=== PATIENT | female | born 1940 | race Caucasian/White ===

== ENCOUNTER → 2016-10-17 | Outpatient (CLI) | payer MEDICARE, BC | END | disposition home or self-care (01) | LOC: LABWHC1 09:30 | PROVIDERS: ATTEND Internal Medicine Endocrinology, Diabetes & Metabolism | DX: E03.8 Other specified hypothyroidism (principal) | CPT/HCPCS: 36415; 84439; 84443; 84480; 86376 ==

== ENCOUNTER 2019-02-02 05:53 | Inpatient (IN) | payer MEDICARE, BC ==
--- NOTE | 2019-02-02 06:35 | ED ---
Lower Extremity Injury HPI - General Chief Complaint: Extremity Injury, Lower Stated Complaint: Fall Time Seen by Provider: 02/02/19 06:06 Source: patient, EMS, RN notes reviewed, old records reviewed Mode of arrival: EMS Limitations: no limitations - History of Present Illness Initial Comments: Patient is a 78-year-old female, she presents emergency department today after she tripped and fell over family dog. Patient reports that she landed onto her left side. Complaining of left hip and lower leg pain. Patient reports that when she fell last night she is not able to bear weight or get up. She reports that she laid on the floor for the evening. She then called EMS this morning. Patient was on the ground for 14 hours. Patient is not on blood thinners. 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 Patient denies any recent fever, chills, shortness of breath, chest pain, back pain, abdominal pain, nausea vomiting, numbness or tingling, dysuria or hematuria, constipation or diarrhea, headaches or visual changes, or any other current symptoms. - Related Data Home Medications Medication Instructions Recorded Confirmed Betamethasone Dipropionate 1 applic TOPICAL BID 02/02/19 02/02/19 [Diprolene AF 0.05% Cream] Levothyroxine Sodium [Synthroid] 75 mcg PO DAILY 02/02/19 02/02/19 Lisinopril [Zestril] 10 mg PO DAILY 02/02/19 02/02/19 Lovastatin [Mevacor] 20 mg PO HS 02/02/19 02/02/19 traMADol HCL 50 - 100 mg PO TID PRN 02/02/19 02/02/19 Allergies Allergy/AdvReac Type Severity Reaction Status Date / Time Sulfa (Sulfonamide AdvReac Nausea & Verified 02/02/19 08:26 Antibiotics) Vomiting Review of Systems ROS Statement: Those systems with pertinent positive or pertinent negative responses have been documented in the HPI. ROS Other: All systems not noted in ROS Statement are negative. Past Medical History History of Any Multi-Drug Resistant Organisms: None Reported Past Psychological History: Anxiety, Depression Smoking Status: Former smoker Past Alcohol Use History: Daily Past Drug Use History: None Reported General Exam - General Exam Comments Initial Comments: Pleasant 78-year-old female. Limitations: no limitations General appearance: alert, in no apparent distress Head exam: Present: atraumatic, normocephalic, normal inspection Eye exam: Present: normal appearance, PERRL, EOMI. Absent: scleral icterus, conjunctival injection, periorbital swelling ENT exam: Present: normal exam, mucous membranes moist Neck exam: Present: normal inspection. Absent: tenderness, meningismus, lymphadenopathy Respiratory exam: Present: normal lung sounds bilaterally. Absent: respiratory distress, wheezes, rales, rhonchi, stridor Cardiovascular Exam: Present: regular rate, normal rhythm, normal heart sounds. Absent: systolic murmur, diastolic murmur, rubs, gallop, clicks GI/Abdominal exam: Present: soft, normal bowel sounds. Absent: distended, tenderness, guarding, rebound, rigid Extremities exam: Present: normal inspection, full ROM, normal capillary refill, other (Isn't is a length in the left lower leg. Unable to dorsiflex or plantarflex. She reports pain within the hip thigh and knee.). Absent: tenderness, pedal edema, joint swelling, calf tenderness Left Hip exam: Present: normal inspection, tenderness Upper Leg exam: Present: normal inspection, full ROM Knee exam: Present: normal inspection Lower Leg exam: Present: normal inspection, full ROM Neurovascular tendon exam: Present: no vascular compromise Gait: unable to bear weight Neurological exam: Present: alert, oriented X3, CN II-XII intact Psychiatric exam: Present: normal affect, normal mood Skin exam: Present: warm, dry, intact, normal color. Absent: rash Course Vital Signs 02/02/19 02/02/19 05:58 09:11 Temperature 98.5 F 99.3 F Pulse Rate 77 73 Respiratory 16 18 Rate Blood Pressure 154/81 140/72 O2 Sat by Pulse 95 94 L Oximetry Medical Decision Making - Medical Decision Making 78 rolled female history of hypertension, thyroid disorder. She presents after tripping falling over her family dog yesterday evening. Patient reports that she fell onto her left side and hip. Denies any head injury. She is not on blood thinners. At this time patient's has tenderness over the left femur. X- rays were completed and showed no significant fracture. Due to the persistent pain and unable to ambulate Patient had a CT of her hip. There is evidence of subcapital fracture with nondisplacement. Patient's case was discussed with Dr. Estrada who accepts the admission. Requires a stat consult to medicine to have Patient cleared for surgery as he can likely put a placement of the pain before the fracture becomes displaced. - Lab Data Result diagrams: 02/02/19 07:07 02/02/19 07:07 Lab Results 02/02/19 02/02/19 02/02/19 Range/Units 07:07 07:07 07:07 WBC 12.5 H (3.8-10.6) k/uL RBC 3.95 (3.80-5.40) m/uL Hgb 13.0 (11.4-16.0) gm/dL Hct 38.3 (34.0-46.0) % MCV 97.0 (80.0-100.0) fL MCH 33.0 (25.0-35.0) pg MCHC 34.0 (31.0-37.0) g/dL RDW 13.4 (11.5-15.5) % Plt Count 234 (150-450) k/uL Neutrophils % 77 % Lymphocytes % 14 % Monocytes % 6 % Eosinophils % 1 % Basophils % 0 % Neutrophils # 9.6 H (1.3-7.7) k/uL Lymphocytes # 1.7 (1.0-4.8) k/uL Monocytes # 0.7 (0-1.0) k/uL Eosinophils # 0.1 (0-0.7) k/uL Basophils # 0.0 (0-0.2) k/uL PT 9.5 (9.0-12.0) sec INR 0.9 (<1.2) APTT 23.2 (22.0-30.0) sec Sodium 133 L (137-145) mmol/L Potassium 4.3 (3.5-5.1) mmol/L Chloride 100 (98-107) mmol/L Carbon Dioxide 24 (22-30) mmol/L Anion Gap 9 mmol/L BUN 14 (7-17) mg/dL Creatinine 0.70 (0.52-1.04) mg/dL Est GFR (CKD-EPI)AfAm >90 (>60 ml/min/1.73 sqM) Est GFR (CKD-EPI)NonAf 84 (>60 ml/min/1.73 sqM) Glucose 93 (74-99) mg/dL Calcium 8.7 (8.4-10.2) mg/dL Total Bilirubin 0.5 (0.2-1.3) mg/dL AST 64 H (14-36) U/L ALT 46 (9-52) U/L Alkaline Phosphatase 80 (38-126) U/L Creatine Kinase 267 H (30-135) U/L Total Protein 6.9 (6.3-8.2) g/dL Albumin 4.0 (3.5-5.0) g/dL Urine Color Urine Appearance (Clear) Urine pH (5.0-8.0) Ur Specific [place] (1.001-1.035) Urine Protein (Negative) Urine Glucose (UA) (Negative) Urine Ketones (Negative) Urine Blood (Negative) Urine Nitrite (Negative) Urine Bilirubin (Negative) Urine Urobilinogen (<2.0) mg/dL Ur Leukocyte Esterase (Negative) Urine RBC (0-5) /hpf Urine WBC (0-5) /hpf Ur Squamous Epith Cells (0-4) /hpf Urine Mucus (None) /hpf 02/02/19 Range/Units 07:07 WBC (3.8-10.6) k/uL RBC (3.80-5.40) m/uL Hgb (11.4-16.0) gm/dL Hct (34.0-46.0) % MCV (80.0-100.0) fL MCH (25.0-35.0) pg MCHC (31.0-37.0) g/dL RDW (11.5-15.5) % Plt Count (150-450) k/uL Neutrophils % % Lymphocytes % % Monocytes % % Eosinophils % % Basophils % % Neutrophils # (1.3-7.7) k/uL Lymphocytes # (1.0-4.8) k/uL Monocytes # (0-1.0) k/uL Eosinophils # (0-0.7) k/uL Basophils # (0-0.2) k/uL PT (9.0-12.0) sec INR (<1.2) APTT (22.0-30.0) sec Sodium (137-145) mmol/L Potassium (3.5-5.1) mmol/L Chloride (98-107) mmol/L Carbon Dioxide (22-30) mmol/L Anion Gap mmol/L BUN (7-17) mg/dL Creatinine (0.52-1.04) mg/dL Est GFR (CKD-EPI)AfAm (>60 ml/min/1.73 sqM) Est GFR (CKD-EPI)NonAf (>60 ml/min/1.73 sqM) Glucose (74-99) mg/dL Calcium (8.4-10.2) mg/dL Total Bilirubin (0.2-1.3) mg/dL AST (14-36) U/L ALT (9-52) U/L Alkaline Phosphatase (38-126) U/L Creatine Kinase (30-135) U/L Total Protein (6.3-8.2) g/dL Albumin (3.5-5.0) g/dL Urine Color Light Yellow Urine Appearance Clear (Clear) Urine pH 5.5 (5.0-8.0) Ur Specific [place] 1.009 (1.001-1.035) Urine Protein Negative (Negative) Urine Glucose (UA) Negative (Negative) Urine Ketones Negative (Negative) Urine Blood Negative (Negative) Urine Nitrite Negative (Negative) Urine Bilirubin Negative (Negative) Urine Urobilinogen <2.0 (<2.0) mg/dL Ur Leukocyte Esterase Moderate H (Negative) Urine RBC 2 (0-5) /hpf Urine WBC 10 H (0-5) /hpf Ur Squamous Epith Cells 2 (0-4) /hpf Urine Mucus Rare H (None) /hpf 02/02/19 07:28 EKG shows normal sinus rhythm, normally EKG. Ventricular rate 77 bpm. Was 132 ms. QS duration 70 ms. QT is 414/468 milliseconds. - Radiology Data Radiology results: report reviewed Chest x-ray cannot exclude a small left-sided effusion. Pelvis x-ray shows no acute osseous lesion. Femur x-rays negative for any acute osseous lesion. Left tib-fib x-ray shows no acute osseous lesion. CT of the hip shows subcapital fracture of the left hip with minimal foreshortening and mild angulation. Degenerative changes within the spine. Diverticulosis of the sigmoid colon. Disposition Clinical Impression: Closed left hip fracture Disposition: HOME SELF-CARE Condition: Stable Is patient prescribed a controlled substance at d/c from ED?: No Referrals: Nonstaff,Physician [Primary Care Provider] - 1-2 days Time of Disposition: 09:29
[2019-02-02] MEDS ORDERED: MORPHINE SULFATE 4 MG/ML SYRINGE IVP STA (06:37)
[2019-02-02 07:22] LABS: Basophils % (A) 0 %; Eosinophils # (A) 0.1 k/uL (0-0.7); Eosinophils % (A) 1 %; HCT 38.3 % (34.0-46.0); Lymphocytes # (A) 1.7 k/uL (1.0-4.8); Lymphocytes % (A) 14 %; Mean Platelet Volume 6.1; Monocytes # (A) 0.7 k/uL (0-1.0); Monocytes % (A) 6 %; Neutrophils # (A) 9.6 k/uL (1.3-7.7); Neutrophils % (A) 77 %; Platelet Count 234 k/uL (150-450); RBC 3.95 m/uL (3.80-5.40); RDW 13.4 % (11.5-15.5); WBC 12.5 k/uL (3.8-10.6)
[2019-02-02 07:32] LABS: INR 0.9 (<1.2); Partial Thromboplastin Time 23.2 sec (22.0-30.0); Prothrombin Time 9.5 sec (9.0-12.0)
[2019-02-02 07:36] LABS: ALT 46 U/L (9-52); AST 64 U/L (14-36); African American GFR (CKD) >90 (>60 ml/min/1.73 sqM); Alkaline Phosphatase 80 U/L (38-126); Anion Gap 9 mmol/L; Blood Urea Nitrogen 14 mg/dL (7-17); Calcium 8.7 mg/dL (8.4-10.2); Carbon Dioxide 24 mmol/L (22-30); Chloride 100 mmol/L (98-107); Creatine Kinase 267 U/L (30-135); Glucose 93 mg/dL (74-99); Non-African American GFR(CKD) 84 (>60 ml/min/1.73 sqM); Potassium 4.3 mmol/L (3.5-5.1); Sodium 133 mmol/L (137-145); Total Bilirubin 0.5 mg/dL (0.2-1.3); Total Protein 6.9 g/dL (6.3-8.2)
--- NOTE | 2019-02-02 07:42 | XR ---
EXAMINATION TYPE: XR chest 1V DATE OF EXAM: 02/02/2019 HISTORY: fall. REFERENCE: NONE. FINDINGS: Heart size upper limits of normal. The lungs are clear. There is blunting of the left CP an gle and I could not exclude a small left effusion. IMPRESSION: I CANNOT EXCLUDE A SMALL LEFT-SIDED EFFUSION.
--- NOTE | 2019-02-02 07:43 | XR ---
EXAMINATION TYPE: XR pelvis AP view , ONE VIEW DATE OF EXAM ORDERED: 02/02/2019 HISTORY: fall. COMPARISON: None. FINDINGS: Osseous structures about the pelvis are normal. No fracture or dislocation is seen. Hip kathe ints are maintained. IMPRESSION: NO ACUTE OSSEOUS LESION.
--- NOTE | 2019-02-02 07:45 | XR ---
EXAMINATION TYPE: XR femur LT , 4 VIEWS DATE OF EXAM ORDERED: 02/02/2019 HISTORY: fall. COMPARISON: None. FINDINGS: There is minimal degenerative change present within the left hip. There is a left knee barak nt arthroplasty in place. No fracture or dislocation is seen. IMPRESSION: NO ACUTE OSSEOUS LESION.
--- NOTE | 2019-02-02 07:46 | XR ---
EXAMINATION TYPE: XR tibia fibula LT , 5 VIEWS DATE OF EXAM ORDERED: 02/02/2019 HISTORY: fall. COMPARISON: None. FINDINGS: There is a left knee arthroplasty in place. Prosthetic elements appear in good position. N o fracture or dislocation is seen. Note is made of a plantar calcaneal spur. IMPRESSION: NO ACUTE OSSEOUS LESION.
[2019-02-02 08:00] LABS: Appearance,Urine Clear (Clear); Bilirubin,Urine Negative (Negative); Blood,Urine Negative (Negative); Color,Urine Light Yellow; Glucose,Urine (UA) Negative (Negative); Ketones,Urine Negative (Negative); Leukocyte Esterase,Urine Moderate (Negative); Mucus,Urine Rare /hpf; Nitrite,Urine Negative (Negative); PH, Urine 5.5 (5.0-8.0); Protein,Urine Negative (Negative); RBC,Urine 2 /hpf (0-5); Specific Gravity,Urine 1.009 (1.001-1.035); Squamous Epithelial Cell,Urine 2 /hpf (0-4); Urobilinogen,Urine <2.0 mg/dL (<2.0); WBC,Urine 10 /hpf (0-5)
--- NOTE | 2019-02-02 08:46 | CT ---
EXAMINATION TYPE: CT hip LT wo con DATE OF EXAM: 02/02/2019 COMPARISON: None. HISTORY: Left hip pain post fall. CT DLP: 715 mGycm Automated exposure control for dose reduction was used. FINDINGS: There is moderate calcification of the distal abdominal aorta. There is distention of the bladder. There is significant diverticular change involving the sigmoid colon. I do not see radiographic evide nce of diverticulitis. There is facet arthropathy in the lower lumbar spine. There is degenerative disc disease at L5-S1. There is an undisplaced subcapital fracture of the left hip with minimal angulation and mild foreshor tening. IMPRESSION: 1. SUBCAPITAL FRACTURE OF THE LEFT HIP WITH MINIMAL FORESHORTENING AND MILD ANGULATION. 2. DEGENERATIVE CHANGE WITHIN THE SPINE. 3. DIVERTICULOSIS OF THE SIGMOID COLON. CODE A: INITIAL ENCOUNTER FOR CLOSED FRACTURE.
[2019-02-02] MEDS ORDERED: IBUPROFEN 400 MG TAB PO PRN (09:29)
[2019-02-02] MEDS ORDERED: MORPHINE SULFATE 4 MG/ML SYRINGE IV PRN (09:29)
[2019-02-02] MEDS ORDERED: HYDROmorphone 0.5 MG/0.5 ML SYRINGE IVP PRN (09:29)
[2019-02-02] MEDS ORDERED: ACETAMINOPHEN TAB 325 MG TAB PO PRN (09:29)
[2019-02-02] MEDS ORDERED: NALOXONE 0.4 MG/ML 1 ML VIAL IV PRN ×2 (09:29→12:34)
--- NOTE | 2019-02-02 09:43 | ED ---
Medical Decision Making - Lab Data Result diagrams: 02/02/19 07:07 02/02/19 07:07 Lab Results 02/02/19 02/02/19 02/02/19 Range/Units 07:07 07:07 07:07 WBC 12.5 H (3.8-10.6) k/uL RBC 3.95 (3.80-5.40) m/uL Hgb 13.0 (11.4-16.0) gm/dL Hct 38.3 (34.0-46.0) % MCV 97.0 (80.0-100.0) fL MCH 33.0 (25.0-35.0) pg MCHC 34.0 (31.0-37.0) g/dL RDW 13.4 (11.5-15.5) % Plt Count 234 (150-450) k/uL Neutrophils % 77 % Lymphocytes % 14 % Monocytes % 6 % Eosinophils % 1 % Basophils % 0 % Neutrophils # 9.6 H (1.3-7.7) k/uL Lymphocytes # 1.7 (1.0-4.8) k/uL Monocytes # 0.7 (0-1.0) k/uL Eosinophils # 0.1 (0-0.7) k/uL Basophils # 0.0 (0-0.2) k/uL PT 9.5 (9.0-12.0) sec INR 0.9 (<1.2) APTT 23.2 (22.0-30.0) sec Sodium 133 L (137-145) mmol/L Potassium 4.3 (3.5-5.1) mmol/L Chloride 100 (98-107) mmol/L Carbon Dioxide 24 (22-30) mmol/L Anion Gap 9 mmol/L BUN 14 (7-17) mg/dL Creatinine 0.70 (0.52-1.04) mg/dL Est GFR (CKD-EPI)AfAm >90 (>60 ml/min/1.73 sqM) Est GFR (CKD-EPI)NonAf 84 (>60 ml/min/1.73 sqM) Glucose 93 (74-99) mg/dL Calcium 8.7 (8.4-10.2) mg/dL Total Bilirubin 0.5 (0.2-1.3) mg/dL AST 64 H (14-36) U/L ALT 46 (9-52) U/L Alkaline Phosphatase 80 (38-126) U/L Creatine Kinase 267 H (30-135) U/L Total Protein 6.9 (6.3-8.2) g/dL Albumin 4.0 (3.5-5.0) g/dL Urine Color Urine Appearance (Clear) Urine pH (5.0-8.0) Ur Specific [place] (1.001-1.035) Urine Protein (Negative) Urine Glucose (UA) (Negative) Urine Ketones (Negative) Urine Blood (Negative) Urine Nitrite (Negative) Urine Bilirubin (Negative) Urine Urobilinogen (<2.0) mg/dL Ur Leukocyte Esterase (Negative) Urine RBC (0-5) /hpf Urine WBC (0-5) /hpf Ur Squamous Epith Cells (0-4) /hpf Urine Mucus (None) /hpf 02/02/19 Range/Units 07:07 WBC (3.8-10.6) k/uL RBC (3.80-5.40) m/uL Hgb (11.4-16.0) gm/dL Hct (34.0-46.0) % MCV (80.0-100.0) fL MCH (25.0-35.0) pg MCHC (31.0-37.0) g/dL RDW (11.5-15.5) % Plt Count (150-450) k/uL Neutrophils % % Lymphocytes % % Monocytes % % Eosinophils % % Basophils % % Neutrophils # (1.3-7.7) k/uL Lymphocytes # (1.0-4.8) k/uL Monocytes # (0-1.0) k/uL Eosinophils # (0-0.7) k/uL Basophils # (0-0.2) k/uL PT (9.0-12.0) sec INR (<1.2) APTT (22.0-30.0) sec Sodium (137-145) mmol/L Potassium (3.5-5.1) mmol/L Chloride (98-107) mmol/L Carbon Dioxide (22-30) mmol/L Anion Gap mmol/L BUN (7-17) mg/dL Creatinine (0.52-1.04) mg/dL Est GFR (CKD-EPI)AfAm (>60 ml/min/1.73 sqM) Est GFR (CKD-EPI)NonAf (>60 ml/min/1.73 sqM) Glucose (74-99) mg/dL Calcium (8.4-10.2) mg/dL Total Bilirubin (0.2-1.3) mg/dL AST (14-36) U/L ALT (9-52) U/L Alkaline Phosphatase (38-126) U/L Creatine Kinase (30-135) U/L Total Protein (6.3-8.2) g/dL Albumin (3.5-5.0) g/dL Urine Color Light Yellow Urine Appearance Clear (Clear) Urine pH 5.5 (5.0-8.0) Ur Specific [place] 1.009 (1.001-1.035) Urine Protein Negative (Negative) Urine Glucose (UA) Negative (Negative) Urine Ketones Negative (Negative) Urine Blood Negative (Negative) Urine Nitrite Negative (Negative) Urine Bilirubin Negative (Negative) Urine Urobilinogen <2.0 (<2.0) mg/dL Ur Leukocyte Esterase Moderate H (Negative) Urine RBC 2 (0-5) /hpf Urine WBC 10 H (0-5) /hpf Ur Squamous Epith Cells 2 (0-4) /hpf Urine Mucus Rare H (None) /hpf Disposition Clinical Impression: Closed left hip fracture Disposition: ADMITTED IP TO THIS [facility] Condition: Stable Referrals: Nonstaff,Physician [Primary Care Provider] - 1-2 days
[2019-02-02] MEDS ORDERED: PROPOFOL 10 MG/ML 20 ML VIAL IV ONE (10:57)
[2019-02-02] MEDS ORDERED: KETAMINE 10 MG/ML 20 ML VIAL ONE (10:57)
[2019-02-02] MEDS ORDERED: MIDAZOLAM 2 MG/2 ML VIAL ONE (10:57)
--- NOTE | 2019-02-02 11:00 | P.HPOR ---
History of Present Illness H&P Date: 02/02/19 The patient is a very pleasant previously healthy 78-year-old that presented to the emergency department this morning with a left hip fracture. According to the patient she tripped and fell over her dog last night. She laid on the floor and was then found by her . She was brought to the emergency department where x-rays and CT scans showed a minimally displaced an impacted femoral neck fracture. I met with the patient preoperatively and she was complaining of isolated pain in her left hip. At baseline she is a community ambulator without assisted device. She is otherwise healthy and is relatively active for her age. Past Medical History History of Any Multi-Drug Resistant Organisms: None Reported Past Psychological History: Anxiety, Depression Smoking Status: Former smoker Past Alcohol Use History: Daily Past Drug Use History: None Reported Medications and Allergies Home Medications Medication Instructions Recorded Confirmed Type Betamethasone Dipropionate 1 applic TOPICAL BID 02/02/19 02/02/19 History [Diprolene AF 0.05% Cream] Escitalopram [Lexapro] 20 mg PO DAILY 02/02/19 02/02/19 History Gabapentin [Neurontin] 300 mg PO TID@0800,1700,2100 02/02/19 02/02/19 History LORazepam [Ativan] 0.5 mg PO DAILY PRN 02/02/19 02/02/19 History Levothyroxine Sodium [Synthroid] 75 mcg PO DAILY 02/02/19 02/02/19 History Lisinopril [Zestril] 10 mg PO DAILY 02/02/19 02/02/19 History Lovastatin [Mevacor] 20 mg PO HS 02/02/19 02/02/19 History traMADol HCL 50 - 100 mg PO TID PRN 02/02/19 02/02/19 History traZODone HCL [Desyrel] 100 mg PO HS 02/02/19 02/02/19 History Allergies Allergy/AdvReac Type Severity Reaction Status Date / Time Sulfa (Sulfonamide AdvReac Nausea & Verified 02/02/19 08:26 Antibiotics) Vomiting Physical Examination On exam the patient is resting comfortably on her ER gurney. She is in mild distress secondary to hip pain but is otherwise alert and easily able to answer questions. Her head is normocephalic and atraumatic. She demonstrates nonlabored breathing with symmetric chest expansion. Her abdomen is soft and nontender. Her bilateral upper extremities and right lower extremities are nontender and without deformity. A focused examination of the left leg was co nducted. On visual inspection of the left leg there was no significant deformity when compared to the right leg. Her thigh was soft and there were no overlying skin lesions, scars, erythema, or areas of skin breakdown. The knee and foot were nontender. Motor and sensory function were intact in the left foot. Results X-rays of the pelvis and femur as well as the computed tomography scan were reviewed. They show a minimally displaced and impacted subcapital femoral neck fracture. - Labs Labs: Abnormal Lab Results - Last 24 Hours (Table) 02/02/19 02/02/19 02/02/19 Range/Units 07:07 07:07 07:07 WBC 12.5 H (3.8-10.6) k/uL Neutrophils # 9.6 H (1.3-7.7) k/uL Sodium 133 L (137-145) mmol/L AST 64 H (14-36) U/L Creatine Kinase 267 H (30-135) U/L Ur Leukocyte Esterase Moderate H (Negative) Urine WBC 10 H (0-5) /hpf Urine Mucus Rare H (None) /hpf H & H 02/02/19 Range/Units 07:07 Hgb 13.0 (11.4-16.0) gm/dL Hct 38.3 (34.0-46.0) % Coagulation 02/02/19 Range/Units 07:07 INR 0.9 (<1.2) Result Diagrams: 02/02/19 07:07 02/02/19 07:07 Assessment and Plan Plan: The patient is presenting with an acute, minimally displaced, and impacted femoral neck fracture. She has been admitted under my care. I met with the patient to discuss her injury and treatment options. We discussed that it will require surgery. We discussed the 2 different treatment options for nondisplaced and impacted femoral neck fractures in people her age. We discussed in situ screw fixation to stabilize the fracture versus arthroplasty. We discussed the pros and cons of both. Due to the x-rays showing impaction and the computed tomography scan showing minimal displacement my recommendation was to stabilize the fracture with in situ screws, acknowledging the risk for displacement and failure ultimately requiring arthroplasty. The patient understands the risks of both treatments and agrees that she would like an at tempt to save her hip with in situ screw fixation. She understands the potential for displacement, nonunion, and the possibility of requiring an arthroplasty. We will plan on surgical stabilization this morning to prevent risk of displacement on the floor. She is relatively healthy and has been n othing by mouth since midnight. Time with Patient: Greater than 30
[2019-02-02] MEDS ORDERED: LACTATED RINGERS 1,000 ML IV ONE ×2 (11:01→12:10)
--- NOTE | 2019-02-02 12:01 | P.EN ---
Attempts to the patient in the emergency room and then in 4 N. however patient was taken to the operation room by surgery team
--- NOTE | 2019-02-02 12:23 | FL ---
FLUOROSCOPY 61 seconds of fluoroscopy time were utilized during left hip pinning. 1 images document the procedure .
[2019-02-02] MEDS ORDERED: HYDROcodone/APAP 5-325MG 1 EACH TAB PO PRN (12:34)
[2019-02-02] MEDS ORDERED: MAGNESIUM HYDROXIDE 2,400 MG/10 ML CUP PO PRN (12:34)
[2019-02-02] MEDS ORDERED: HYDROmorphone 1 MG/ML 1 ML SYRINGE IVP PRN (12:34)
--- NOTE | 2019-02-02 12:34 | P.OP ---
Date of Procedure: 02/02/19 Preoperative Diagnosis: Left nondisplaced subcapital femoral neck fracture Postoperative Diagnosis: Same Procedure(s) Performed: In situ screw fixation of nondisplaced left femoral neck fracture Anesthesia: spinal Surgeon: Ki Estrada Estimated Blood Loss (ml): 50 IV fluids (ml): 800 Pathology: none sent Condition: stable Disposition: PACU Indications for Procedure: The patient is very pleasant previously healthy and relatively active 78 year o ld female who sustained a fall last evening resulting in a nondisplaced femoral neck fracture. She was brought to the emergency department this morning where x-rays and CT scans showed a nondisplaced subcapital femoral neck fracture. The patient was admitted under my care. I met with Gisselle prior to surgery discussed treatment options including in situ screw fixation and arthroplasty. We discussed the pros and cons of both. Since the fracture is nondisplaced on her computed tomography scan my recommendation was to attempt in situ screw fixation, acknowledging the risk for displacement ultimately requiring arthroplasty. The patient agreed and consented to this. Since she was relatively healthy anesthesia and I felt safe taking her to the operating room urgently to prevent inadvertent displacement while transferring on the floor. We discussed the potential risks and competitions of surgery including but not limited to risks from anesthesia, superficial infection, deep infection, damage to local blood vessels or nerves, intraoperative fracture, postoperative fracture, nonunion, malunion, hardware failure and collapse, periprosthetic fracture, leg length discrepancy, DVT, PE, other medical complications, and for limb. The patient specifically knowledge is the potential for nonunion, collapse, and failure requiring need for arthroplasty. She provided her verbal and written consent to go forward with surgery. Description of Procedure: The patient was identified in preoperative holding and the correct left leg was marked with my initials. I reviewed the consent form with the patient and all of her questions were answered. The patient was then brought back to the operating room by anesthesia. While still on the gurney she was given a spinal anesthetic and preoperative antibiotics. The patient was then carefully transferred onto the fracture table. A perineal post was placed and the patient was slid down until the peroneal post engaged her perineum. The unaffected right leg was flexed at the hip externally rotated, and secured to a well leg upton with foam and Coban. The left leg was placed in the boot of a foot upton, was well-padded, and was secured with straps and an Haider wrap. A timeout was then performed identifying the correct patient, operative extremity, and procedure. At this point fluoroscopy was brought in to assess stability of the fracture and to determine that appropriate orthogonal views could be obtained. The fracture appeared to be stable and impacted. The leg was brought through range of motion and the hip was again felt to be stable. I verified that an AP and lateral view could be obtained. The left leg was then prepped and draped in the standard sterile fashion. I began by making a longitudinal incision over the lateral aspect of the proximal femur. Dissection was carried down to the subcu in his fat to the IT band. The IT band was split in line with the skin incision. I then placed a guidepin inferiorly just above the level of lesser trochanter. The guidepin was directed into the low posterior aspect of the femoral head. The position of the guidewire was verified with fluoroscopy. I then proceeded to place an additional 2 guidepins superiorly. The guidepins were verified with fluoroscopy and orthogonal views. The cannulated depth gauge was used to measure the appropriately length screws. A cannulated drill was used to start a path of the lateral cortex of the femur. Partially threaded, cannulated screws were then placed over the guide pins up into the femoral head. The screws were placed and sequentially tightened. The guidepins were removed and final fluoroscopic images were taken. The screws appeared to be completely within the femoral head and did not violate the joint. All of the threads appeared to across the fracture site. The wound was thoroughly irrigated and closed in layers with a running 0 Vicryl for the IT band, 0 Vicryl for the deep subcu, and 2-0 Vicryl for the subcu. The skin was closed with seth. A sterile dressing consisting of Adaptic, 4 x 4, and 2 medium Tegaderm dressings were applied. The patient was then carefully removed from the fracture table, transferred to a gurney, and brought to recovery entire procedure well. Plan: The patient is going to be admitted for IV antibiotics, pain control, therapy, and discharge planning. She will receive 2 doses of postoperative antibiotics through her IV. She is to remain toe-touch weightbearing on the left leg with a walker. I would like to treat her with Lovenox for 4 weeks for DVT prophylaxis. Appreciate internal medicine assistance of perioperative medical management. Discharge planning is pending.
[2019-02-02] MEDS: SODIUM CHLORIDE 0.9% 1,000 ML IV SCH ×3 (13:32→16:22)
[2019-02-02] MEDS: HYDROmorphone 0.5 MG/0.5 ML SYRINGE IVP PRN ×2 (13:33→21:30)
[2019-02-02 14:19] LABS: Basophils % (A) 0 %; Eosinophils # (A) 0.1 k/uL (0-0.7); Eosinophils % (A) 1 %; HCT 38.4 % (34.0-46.0); HGB 12.7 gm/dL (11.4-16.0); Lymphocytes # (A) 1.2 k/uL (1.0-4.8); Lymphocytes % (A) 10 %; MCH 32.9 pg (25.0-35.0); MCHC 33.2 g/dL (31.0-37.0); MCV 99.1 fL (80.0-100.0); Mean Platelet Volume 6.2; Monocytes # (A) 0.8 k/uL (0-1.0); Monocytes % (A) 6 %; Neutrophils # (A) 10.3 k/uL (1.3-7.7); Neutrophils % (A) 81 %; Platelet Count 228 k/uL (150-450); RBC 3.87 m/uL (3.80-5.40); RDW 13.5 % (11.5-15.5); WBC 12.7 k/uL (3.8-10.6)
[2019-02-02] MEDS: HYDROcodone/APAP 5-325MG 1 EACH TAB PO PRN ×2 (16:21→21:24)
[2019-02-02] MEDS: SENNOSIDES-DOCUSATE SODIUM 1 EACH TAB PO SCH (21:25)
[2019-02-02] MEDS: GABAPENTIN 300 MG CAP PO SCH (21:25)
[2019-02-02] MEDS: ATORVASTATIN 10 MG TAB PO SCH (21:25)
[2019-02-02] MEDS: hydrOXYzine PAMOATE 25 MG CAP PO PRN (21:25)
[2019-02-02] MEDS: traZODone HCL 100 MG TAB PO SCH (21:26)
[2019-02-03] MEDS: diphenhydrAMINE 25 MG CAP PO SCH ×2 (00:46→20:11)
[2019-02-03] MEDS: HYDROcodone/APAP 5-325MG 1 EACH TAB PO PRN ×3 (06:14→19:30)
[2019-02-03] MEDS: hydrOXYzine PAMOATE 25 MG CAP PO PRN ×3 (06:14→19:30)
[2019-02-03] MEDS: GABAPENTIN 300 MG CAP PO SCH ×3 (08:26→20:11)
[2019-02-03] MEDS: ENOXAPARIN 40 MG/0.4 ML SYRINGE SQ SCH (08:26)
--- NOTE | 2019-02-03 08:38 | P.PN ---
Subjective Progress Note Date: 02/03/19 This patient is 78-year-old female who sustained a fall on 02/01/19. X-rays and computed tomography scan in the emergency department showed a left non-displaced subcapital femoral neck fracture. Patient was originally evaluated by Dr. Estrada, who recommended surgery. Patient underwent in in situ screw fixation of a nondisplaced femoral neck fracture 02/02/19. Today's postoperative day #1. The patient states she is experiencing mild pain in the left hip, although the pain is well-controlled currently. She has not yet been up with physical therapy. Patient tolerated her breakfast well. She states she feels well this morning. She denies chest pain, shortness of breath, nausea, vomiting, fevers, chills. Vital signs stable. Objective - Vital Signs Vital signs: Vital Signs Temp 99.7 F H 02/03/19 02:07 Pulse 89 02/03/19 02:07 Resp 14 02/03/19 02:07 BP 128/71 02/03/19 02:07 Pulse Ox 91 L 02/03/19 02:07 Intake & Output 02/02/19 02/03/19 02/03/19 18:59 06:59 18:59 Intake Total 1200 Output Total 1700 875 Balance -500 -875 Intake: IV 1000 Intake, IV Titration 200 Amount Sodium Chloride 0.9% 1, 200 000 ml @ 100 mls/hr IV . Q10H [facility] Rx#:[id number] Output: Urine 1650 875 Uretheral (Encarnacion) 1000 Estimated Blood Loss 50 Other: Voiding Method Indwelling Catheter Indwelling Catheter # Voids 0 - Exam On exam, the patient is sitting up in bed in no acute distress. Patient is alert and oriented x3. On inspection of the left hip, there is a dressing in place which appears to have mild saturation. Dressing is taken down, and the surgical incision shows no signs of infection; there is no erythema or drainage. Encarnacion catheter in place. Lower extremity compression cuffs in place bilaterally, calves are soft and nontender bilaterally. Patient has full range of motion of the ankles and toes bilaterally. Neurovascular is intact of the left lower extremity. Dorsalis pedis pulse +2 bilaterally, brisk capillary refill of the left lower extremity. Vital signs stable. - Labs CBC & Chem 7: 02/02/19 13:56 02/02/19 07:07 Labs: Abnormal Lab Results - Last 24 Hours (Table) 02/02/19 Range/Units 13:56 WBC 12.7 H (3.8-10.6) k/uL Neutrophils # 10.3 H (1.3-7.7) k/uL Assessment and Plan Assessment: Left nondisplaced subcapital femoral neck fracture status-post in situ screw fixation on 02/02/19. Plan: -Toe-touch weightbearing of the left lower extremity. Ice and elevate the operative site to decrease pain and swelling. Daily dressing changes. - Physical therapy for gait and balance training. - Continue pain management. Decrease use of IV Dilaudid as tolerated. - Lovenox for DVT prophylaxis. - 2 doses of postoperative antibiotics complete. - Appreciate internal medicine consult for medical management. - Case management consult the for discharge planning and possible rehab placement. Patient discussed with Dr. Estrada.
--- NOTE | 2019-02-03 10:13 | P.CONS ---
History of Present Illness - History of Present Illness This is a pleasant 78 years old female with past medical history of hypertens ion. Presents because of fall when she tripped on her dog, patient was going in a direction and the duct was going in different direction and she tripped and fell no headache, but she left in her left side and there was an evidence of fracture on presentation. Patient already has been taking to our yesterday and status post surgical reduction of her fracture. She denies syncope, no dizziness. No chest pain or abdominal pain. No dyspnea. No nausea vomiting. No urinary symptoms. Review of Systems Review of systems CONSTITUTIONAL: No fever, no malaise, no fatigue. HEENT: No recent visual problems or hearing problems. Denied any sore throat. CARDIOVASCULAR: No orthopnea, PND, no palpitations, no syncope. PULMONARY: No shortness of breath, no cough, no hemoptysis. GASTROINTESTINAL: No diarrhea, no nausea, no vomiting, no abdominal pain. Normoactive bowel sounds. NEUROLOGICAL: No headaches, no weakness, no numbness. HEMATOLOGICAL: Denies any bleeding or petechiae. GENITOURINARY: Denies any burning micturition, frequency, or urgency. MUSCULOSKELETAL/RHEUMATOLOGICAL: Denies any muscle pain. ENDOCRINE: Denies any polyuria or polydipsia. Past Medical History Past Medical History: Hypertension History of Any Multi-Drug Resistant Organisms: None Reported Past Surgical History: No Surgical Hx Reported Past Psychological History: Anxiety, Depression Smoking Status: Former smoker Past Alcohol Use History: Daily Past Drug Use History: None Reported - Past Family History Mother Family Medical History: Hypertension Medications and Allergies Home Medications Medication Instructions Recorded Confirmed Type Betamethasone Dipropionate 1 applic TOPICAL BID 02/02/19 02/02/19 History [Diprolene AF 0.05% Cream] Escitalopram [Lexapro] 20 mg PO DAILY 02/02/19 02/02/19 History Gabapentin [Neurontin] 300 mg PO TID@0800,1700,2100 02/02/19 02/02/19 History LORazepam [Ativan] 0.5 mg PO DAILY PRN 02/02/19 02/02/19 History Levothyroxine Sodium [Synthroid] 75 mcg PO DAILY 02/02/19 02/02/19 History Levothyroxine Sodium [Synthroid] 75 mcg PO DAILY 02/02/19 02/02/19 History Lisinopril [Prinivil] 10 mg PO DAILY 02/02/19 02/02/19 History Lisinopril [Zestril] 10 mg PO DAILY 02/02/19 02/02/19 History Lovastatin [Mevacor] 20 mg PO HS 02/02/19 02/02/19 History diphenhydrAMINE [Benadryl] 25 mg PO HS PRN 02/02/19 02/02/19 History traMADol HCL 50 - 100 mg PO TID PRN 02/02/19 02/02/19 History traMADol HCl [Ultram] 50 mg PO Q6HR PRN 02/02/19 02/02/19 History traZODone HCL [Desyrel] 100 mg PO HS 02/02/19 02/02/19 History Allergies Allergy/AdvReac Type Severity Reaction Status Date / Time Sulfa (Sulfonamide AdvReac Nausea & Verified 02/02/19 08:26 Antibiotics) Vomiting Physical Exam Vitals: Vital Signs Temp Pulse Pulse Resp BP Pulse Ox 02/03/19 08:00 99.6 F 89 16 153/80 94 L 02/03/19 02:07 99.7 F H 89 14 128/71 91 L 02/02/19 19:30 98.8 F 92 14 127/69 93 L 02/02/19 14:30 85 136/77 02/02/19 14:15 84 146/63 02/02/19 13:30 70 141/80 02/02/19 13:15 98.3 F 66 12 107/58 92 L 02/02/19 13:02 67 16 140/77 96 02/02/19 12:47 66 18 142/70 95 02/02/19 12:32 97.3 F L 78 20 126/75 96 Intake and Output 02/02/19 02/03/19 02/03/19 22:59 06:59 14:59 Intake Total 200 118 Output Total 875 500 Balance 200 875 -382 Intake: Intake, IV Titration 200 Amount Sodium Chloride 0.9% 1, 200 000 ml @ 100 mls/hr IV . Q10H [facility] Rx#:[id number] Oral 118 Output: Urine 875 500 Other: Voiding Method Indwelling Catheter Indwelling Catheter # Voids 0 GENERAL: The patient is alert and oriented x3, not in any acute distress. Well developed, well nourished. HEENT: Pupils are round and equally reacting to light. EOMI. No scleral icterus. No conjunctival pallor. Normocephalic, atraumatic. No pharyngeal erythema. No thyromegaly. CARDIOVASCULAR: S1 and S2 present. No murmurs, rubs, or gallops. PULMONARY: Chest is clear to auscultation, no wheezing or crackles. -ABDOMEN: Soft, nontender, nondistended, normoactive bowel sounds. No palpable organomegaly. Encarnacion catheter is in a Place MUSCULOSKELETAL: No joint swelling or deformity. -EXTREMITIES: No cyanosis, clubbing, or pedal edema. Left hip wound is closed with dressing NEUROLOGICAL: Gross neurological examination did not reveal any focal deficits. SKIN: No rashes. No petechiae Results CBC & Chem 7: 02/02/19 13:56 02/02/19 07:07 Labs: Abnormal Lab Results - Last 24 Hours (Table) 02/02/19 Range/Units 13:56 WBC 12.7 H (3.8-10.6) k/uL Neutrophils # 10.3 H (1.3-7.7) k/uL Assessment and Plan Assessment: Fall secondary to tripping on her dog Asymptomatic bacteriuria. Less likely UTI Left hip fracture status post surgical reduction this is a pleasant 78 years old female with past medical history of Hypertension Plan: This is a pleasant 78 years old female who presents with left hip fracture secondary to fall. She status post surgical fixation. Continue with pain management and DVT prophylaxis as per primary surgical team. Pain management. Her urinalysis was suspicious for infection but follow-up urine culture. No signs symptoms of UTI most likely this is asymptomatic bacteriuria. So we'll discontinue the antibiotics however follow-up culture results Labs and medication were reviewed.. Continue same treatment. Continue with symptomatic treatment. Resume home medication. Monitor lytes and vitals. DVT and GI prophylaxis. Further recommendations of the clinical course of the patient We recommend physical therapy evaluation
[2019-02-03] MEDS: HYDROmorphone 0.5 MG/0.5 ML SYRINGE IVP PRN (10:39)
[2019-02-03] MEDS: SODIUM CHLORIDE 0.9% 1,000 ML IV SCH ×3 (11:44→20:11)
[2019-02-03] MEDS: MULTIVITAMINS, THERA 1 EACH TAB PO SCH (11:54)
[2019-02-03] MEDS ORDERED: CALCIUM CARBONATE 500 MG CHEWABLE PO PRN (16:11)
[2019-02-03] MEDS ORDERED: ERGOCALCIFEROL 50,000 UNIT CAP PO SCH (17:00)
[2019-02-03] MEDS: SENNOSIDES-DOCUSATE SODIUM 1 EACH TAB PO SCH (20:11)
[2019-02-03] MEDS: ATORVASTATIN 10 MG TAB PO SCH (20:11)
[2019-02-03] MEDS: traZODone HCL 100 MG TAB PO SCH (20:11)
[2019-02-04] MEDS: HYDROcodone/APAP 5-325MG 1 EACH TAB PO PRN ×4 (05:36→23:23)
[2019-02-04] MEDS: hydrOXYzine PAMOATE 25 MG CAP PO PRN ×3 (05:36→23:23)
[2019-02-04] MEDS: SODIUM CHLORIDE 0.9% 1,000 ML IV SCH ×3 (05:54→17:52)
[2019-02-04] MEDS: GABAPENTIN 300 MG CAP PO SCH ×3 (08:12→20:15)
[2019-02-04] MEDS: ENOXAPARIN 40 MG/0.4 ML SYRINGE SQ SCH (08:12)
--- NOTE | 2019-02-04 09:05 | P.PN ---
Subjective Progress Note Date: 02/04/19 This patient is 78-year-old female who sustained a fall on 02/01/19. X-rays and computed tomography scan in the emergency department showed a left non-displaced subcapital femoral neck fracture. Patient was originally evaluated by Dr. Estrada, who recommended surgery. Patient underwent in in situ screw fixation of a nondisplaced femoral neck fracture 02/02/19. Today's postoperative day #2. The patient is doing well today. She was up with therapy yesterday, she is using a walker and remaining toe-touch weightbearing on the operative leg. She states she experiences increasing pain in the left l ower extremity when up out of bed. She states currently her pain is very well- controlled. She is tolerating her diet well. She has had a bowel movement postoperatively. She is planing on rehab after discharge. She denies chest pain, shortness breath, nausea, vomiting, fevers, chills. Vital signs stable. Objective - Vital Signs Vital signs: Vital Signs Temp 98.7 F 02/04/19 08:36 Pulse 81 02/04/19 08:36 Resp 16 02/04/19 08:36 BP 147/77 02/04/19 08:36 Pulse Ox 93 L 02/04/19 08:36 Intake & Output 02/03/19 02/04/19 02/04/19 18:59 06:59 18:59 Intake Total 1510 300 Output Total 1100 500 Balance 410 -200 Intake: IV 800 Sodium Chloride 0.9% 1, 800 000 ml @ 100 mls/hr IV . Q10H [facility] Rx#:[id number] Intake, IV Titration 300 Amount Sodium Chloride 0.9% 1, 300 000 ml @ 100 mls/hr IV . Q10H [facility] Rx#:[id number] Oral 710 Output: Urine 1100 500 Other: Voiding Method Indwelling Catheter Indwelling Catheter Indwelling Catheter # Bowel Movements 1 - Exam On exam, the patient is sitting up in bed in no acute distress. Patient is alert and oriented x3. On inspection of the left hip, there is a dressing in place which is clean, dry, intact. No drainage. Encarnacion catheter in place. Lower extremity compression cuffs in place bilaterally, calves are soft and nontender bilaterally. Patient has full range of motion of the ankles and toes bilaterally. Neurovascular is intact of the left lower extremity. Dorsalis pedis pulse +2 bilaterally, brisk capillary refill of the left lower extremity. Vital signs stable. - Labs CBC & Chem 7: 02/02/19 13:56 02/02/19 07:07 Labs: Abnormal Lab Results - Last 24 Hours (Table) 02/02/19 Range/Units 07:07 Vitamin D 25-Hydroxy 17.3 L (30.0-100.0) ng/mL Microbiology - Last 24 Hours (Table) 02/03/19 08:20 Urine Culture - Preliminary Urine,Catheterized Assessment and Plan Assessment: Left nondisplaced subcapital femoral neck fracture status-post in situ screw fixation on 02/02/19. Post-operative day #2. Plan: -Toe-touch weightbearing of the left lower extremity. Ice and elevate the operative site to decrease pain and swelling. Daily dressing changes. - Physical therapy for gait and balance training. - Continue pain management. Decrease use of IV Dilaudid as tolerated. - Lovenox for DVT prophylaxis. - 2 doses of postoperative antibiotics complete. - Appreciate internal medicine consult for medical management. - Planning on discharge within the next 24-48 hours to rehab. Patient discussed with Dr. Estrada.
[2019-02-04] MEDS: HYDROmorphone 0.5 MG/0.5 ML SYRINGE IVP PRN (09:14)
[2019-02-04 12:40] LABS: Basophils # (A) 0.2 k/uL (0-0.2); Basophils % (A) 2 %; Eosinophils # (A) 0.2 k/uL (0-0.7); Eosinophils % (A) 2 %; HCT 34.8 % (34.0-46.0); HGB 11.4 gm/dL (11.4-16.0); Lymphocytes # (A) 1.2 k/uL (1.0-4.8); Lymphocytes % (A) 13 %; MCH 32.9 pg (25.0-35.0); MCHC 32.7 g/dL (31.0-37.0); MCV 100.7 fL (80.0-100.0); Macrocytosis Slight; Mean Platelet Volume 7.4; Monocytes # (A) 0.5 k/uL (0-1.0); Monocytes % (A) 6 %; Neutrophils # (A) 6.9 k/uL (1.3-7.7); Neutrophils % (A) 74 %; Platelet Count 222 k/uL (150-450); RBC 3.45 m/uL (3.80-5.40); RDW 13.5 % (11.5-15.5); WBC 9.4 k/uL (3.8-10.6)
[2019-02-04] MEDS: MULTIVITAMINS, THERA 1 EACH TAB PO SCH (14:43)
[2019-02-04] MEDS: CHOLECALCIFEROL 1,000 UNIT TAB PO SCH (14:43)
--- NOTE | 2019-02-04 14:55 | PN ---
PROGRESS NOTE DATE OF SERVICE: 02/04/2019 This is a 78-year-old woman who was admitted after left hip fracture, underwent in-situ screw fixation of the nondisplaced left femoral neck fracture. The patient will be closely monitored. No chest pain. No palpitations. No fever. PHYSICAL EXAM: Alert and oriented x3. The pulse is 81, blood pressure 147/77, respirations 16, temperature 98.7, pulse ox 93% on room air. HEENT: Conjunctivae normal. NECK: No jugular venous distension. CARDIOVASCULAR SYSTEM: S1, S2, muffled. RESPIRATORY: Breath sounds diminished at the bases. No rhonchi, no crackles. ABDOMEN: Soft. LEGS: Status post hip surgery. NERVOUS SYSTEM: No focal deficits. LABS: WBC 9.3, hemoglobin is 11.4, sodium 133, creatine kinase 267, vitamin D level 17.3. ASSESSMENT: 1. Fall secondary to tripping on her dog. 2. Left hip fracture status post in-situ screw fixation of nondisplaced left femoral neck fracture. 3. Asymptomatic bacteriuria, unlikely to be due to urinary tract infection. 4. Hypertension. 5. Mild hyponatremia. 6. Elevated creatine kinase mild. 7. Increased WBC possibly reactive, improved. 8. History of hypertension. 9. History of anxiety, depression. 10.Remote history of nicotine dependence. RECOMMENDATION: In this 74-year-old woman who presented with multiple medical issues, will monitor the patient closely. Continue with the current management and symptomatic treatment. Resume the home medications. Incentive spirometry. DVT prophylaxis. Will follow the patient closely with Orthopedic Surgery. Further recommendations to follow. MMODL / IJN: [id number] / NAYAN
[2019-02-04] MEDS: diphenhydrAMINE 25 MG CAP PO SCH (20:15)
[2019-02-04] MEDS: SENNOSIDES-DOCUSATE SODIUM 1 EACH TAB PO SCH (20:15)
[2019-02-04] MEDS: traZODone HCL 100 MG TAB PO SCH (20:15)
[2019-02-04] MEDS: ATORVASTATIN 10 MG TAB PO SCH (20:16)
[2019-02-05 07:38] VITALS: BP 174/98; PULSE 81; RESP 16; TEMP 98.3
--- NOTE | 2019-02-05 08:52 | P.DS ---
Providers Date of admission: 02/02/19 10:15 Expected date of discharge: 02/05/19 Attending physician: Ki Estrada Consults: 02/02/19 09:29 Consult Physician Stat Consulting Provider: Kevin Dias Reason/Comments: Med clearance Do you want consulting provider notified?: Yes Primary care physician: Physician Nonstaff Hospital Course: This is a 78-year-old female who presented on 02/02/19 after falling and sustaining injury to the left hip. On x-ray and CT scan in the [facility] emergency department she was found to have a left non-displaced femoral neck fracture. The patient is admitted to our service for surgical intervention and care. The patient is taken to surgery for in situ screw fixation of the femoral neck fracture on 02/02/19. The procedure is performed without complication or sequelae. The patient is doing well postoperatively. Vital signs are stable on postop day #3. The patient was examined bedside this morning. She states she feels very well this morning. She was up with therapy yesterday with the walker and is transferring without significant pain or issues. She notes mild pain in the left knee when she is up with therapy, although she states she has been experiencing chronic pain in the knee, this is not a new complaint for her. She has a history of total knee arthroplasty. She is tolerating her diet well. She states she had two bowel movements yesterday. She denies chest pain, shortness of breath, nausea, vomiting, fevers, chills. There are no new complaints today. Vital signs stable. On examination, patient is sitting up in bed in no acute distress. Patient has been oriented 3. On inspection of the left hip, there is a dressing in place which is clean, dry, intact. No drainage. Encarnacion catheter in place. Lower extremity compression cuffs in place bilaterally. Calves are soft and nontender bilaterally. Patient has full range of motion of the ankle and toes bilaterally. Neurovascular is intact to left lower extremity. Left dorsalis pedis pulse +2, brisk capillary refill of lower extremity. Vital signs stable. The patient is discharged to inpatient rehab, pending medical clearance today. Please refer to the med rec for accurate list of medications. Patient Condition at Discharge: Stable Plan - Discharge Summary Discharge Rx Participant: Yes New Discharge Prescriptions: New Docusate [Colace] 100 mg PO BID #60 capsule Enoxaparin [Lovenox] 40 mg SQ DAILY #28 syringe Hydrocodone/Acetaminophen [Milton 5-325] 1 tab PO Q4-6H PRN #40 tab PRN Reason: Pain Ergocalciferol [Vitamin D2] 50,000 unit PO Q72H #10 cap No Action Lovastatin [Mevacor] 20 mg PO HS Levothyroxine Sodium [Synthroid] 75 mcg PO DAILY Betamethasone Dipropionate [Diprolene AF 0.05% Cream] 1 applic TOPICAL BID traMADol HCL 50 - 100 mg PO TID PRN PRN Reason: Pain Lisinopril [Zestril] 10 mg PO DAILY traZODone HCL [Desyrel] 100 mg PO HS LORazepam [Ativan] 0.5 mg PO DAILY PRN PRN Reason: Anxiety Gabapentin [Neurontin] 300 mg PO TID@0800,1700,2100 Escitalopram [Lexapro] 20 mg PO DAILY Levothyroxine Sodium [Synthroid] 75 mcg PO DAILY Lisinopril [Prinivil] 10 mg PO DAILY traMADol HCl [Ultram] 50 mg PO Q6HR PRN PRN Reason: Insomnia diphenhydrAMINE [Benadryl] 25 mg PO HS PRN PRN Reason: Insomnia Discharge Medication List Betamethasone Dipropionate [Diprolene AF 0.05% Cream] 1 applic TOPICAL BID 02/02/19 [History] Escitalopram [Lexapro] 20 mg PO DAILY 02/02/19 [History] Gabapentin [Neurontin] 300 mg PO TID@0800,1700,2100 02/02/19 [History] LORazepam [Ativan] 0.5 mg PO DAILY PRN 02/02/19 [History] Levothyroxine Sodium [Synthroid] 75 mcg PO DAILY 02/02/19 [History] Levothyroxine Sodium [Synthroid] 75 mcg PO DAILY 02/02/19 [History] Lisinopril [Prinivil] 10 mg PO DAILY 02/02/19 [History] Lisinopril [Zestril] 10 mg PO DAILY 02/02/19 [History] Lovastatin [Mevacor] 20 mg PO HS 02/02/19 [History] diphenhydrAMINE [Benadryl] 25 mg PO HS PRN 02/02/19 [History] traMADol HCL 50 - 100 mg PO TID PRN 02/02/19 [History] traMADol HCl [Ultram] 50 mg PO Q6HR PRN 02/02/19 [History] traZODone HCL [Desyrel] 100 mg PO HS 02/02/19 [History] Docusate [Colace] 100 mg PO BID #60 capsule 02/04/19 [Rx] Enoxaparin [Lovenox] 40 mg SQ DAILY #28 syringe 02/04/19 [Rx] Hydrocodone/Acetaminophen [Milton 5-325] 1 tab PO Q4-6H PRN #40 tab 02/04/19 [Rx] Ergocalciferol [Vitamin D2] 50,000 unit PO Q72H #10 cap 02/05/19 [Rx] Follow up Appointment(s)/Referral(s): Ángel Ahumada MD [REFERRING] - 1 Week (After discharge from rehab) Nonstaff,Physician [Primary Care Provider] - 1-2 days [facility], [NON-STAFF] - As Needed Ki Estrada MD [Medical Doctor] - 02/18/19 9:30 am Activity/Diet/Wound Care/Special Instructions: -Toe-touch weightbearing on your operative leg. Daily dressing changes. -Use crutches, knee scooter, or a walker to ambulate after surgery. -Elevate and ice operative leg to help reduce swelling and control pain. -Take pain medications as prescribed. Take Colace as a stool softener. Take Lovenox for 4 weeks as prescribed for blood clot prevention. Take vitamin D as prescribed. -Follow-up appointment with Dr. Estrada in the office in 2 weeks. -Call the office with any questions or concerns, Discharge Disposition: TRANSFER TO SNF/ECF
[2019-02-05] MEDS: SODIUM CHLORIDE 0.9% 1,000 ML IV SCH ×3 (09:10→13:01)
[2019-02-05] MEDS: GABAPENTIN 300 MG CAP PO SCH ×2 (09:19→17:04)
[2019-02-05] MEDS: ENOXAPARIN 40 MG/0.4 ML SYRINGE SQ SCH (09:19)
[2019-02-05] MEDS: hydrOXYzine PAMOATE 25 MG CAP PO PRN ×2 (09:30→15:24)
[2019-02-05] MEDS: HYDROcodone/APAP 5-325MG 1 EACH TAB PO PRN ×2 (09:31→15:22)
--- NOTE | 2019-02-05 10:56 | XR ---
EXAMINATION TYPE: XR knee complete LT DATE OF EXAM: 02/05/2019 CLINICAL HISTORY: Left knee pain TECHNIQUE: Three views of the left knee are obtained. COMPARISON: None. FINDINGS: There is no acute fracture/dislocation evident in left knee. Left knee arthroplasty mainta ins normal alignment without surrounding lucency or hardware fracture. Incidentally noted fabella. Th e tri-compartment joint spaces appear within normal limits. The overlying soft tissue appears unrema rkable. IMPRESSION: There is no acute fracture or dislocation in the left knee. No radiographic evidence of arthroplasty loosening, malalignment nor fracture.
[2019-02-05] MEDS: MULTIVITAMINS, THERA 1 EACH TAB PO SCH (13:01)
[2019-02-05] MEDS: CHOLECALCIFEROL 1,000 UNIT TAB PO SCH (13:01)
--- NOTE | 2019-02-06 07:25 | PN ---
PROGRESS NOTE DATE OF SERVICE: 02/05/2019 This 78-year-old woman was admitted with fall and secondary to tripping over the dog, had surgery also. No chest pain. No palpitations. No fever. PHYSICAL EXAM: Alert and oriented x3. Pulse is 81, blood pressure 175/90, respirations 16, temperature 98.1, pulse ox 97% on room air skin: HEENT: Conjunctivae normal. NECK: No jugular venous distension. CARDIOVASCULAR: S1, S2, muffled. RESPIRATORY: Breath sounds diminished in the bases, no rhonchi, no crackles. ABDOMEN: Soft, nontender. LEGS: Status post hip surgery. NERVOUS SYSTEM: No focal deficits. LABS: CBC normal limits. ASSESSMENT: 1. Left hip fracture, status post in-situ screw fixation and for nondisplaced left femoral neck fracture. 2. Fall secondary to tripping on her dog. 3. Asymptomatic bacteriuria unlikely due to urinary tract infection. 4. Hypertension. 5. Mild hyponatremia. 6. Elevated creatine kinase, mild. 7. Increased WBC possibly reactive, improved. 8. History of hypertension. 9. History of anxiety, depression. 10.Remote history of nicotine dependence. RECOMMENDATION: Recommend to continue current medications, continue monitoring and symptomatic treatment. Will monitor the patient closely. Possible ECF rehab. Rest of the recommendations per Orthopedic Surgery. Further recommendations to follow. MMODL / IJN: [id number] /
== END 2019-02-05 17:25 | DRG 481 ==
LOC: EC 05:53 → 4SSUR 10:15
PROVIDERS: ADMIT Orthopaedic Surgery; ATTEND Orthopaedic Surgery
PROC: 0QH704Z Insertion of Internal Fixation Device into Left Upper Femur, Open Approach (ICD-10-PCS; principal; 2019-02-02 09:40)
DX: S72.012A Unspecified intracapsular fracture of left femur, initial encounter for closed fracture (principal); E87.1 Hypo-osmolality and hyponatremia; F32.9 Major depressive disorder, single episode, unspecified; F41.9 Anxiety disorder, unspecified; G89.29 Other chronic pain; I10 Essential (primary) hypertension; M25.562 Pain in left knee; E07.9 Disorder of thyroid, unspecified; E78.5 Hyperlipidemia, unspecified; D72.829 Elevated white blood cell count, unspecified; R74.8 Abnormal levels of other serum enzymes; Z96.652 Presence of left artificial knee joint; Z87.891 Personal history of nicotine dependence; Z79.890 Hormone replacement therapy; Z79.899 Other long term (current) drug therapy; Z88.2 Allergy status to sulfonamides; Z82.49 Family history of ischemic heart disease and other diseases of the circulatory system; W01.0XXA Fall on same level from slipping, tripping and stumbling without subsequent striking against object, initial encounter; Y92.9 Unspecified place or not applicable
CPT/HCPCS: 36415; 71045; 72170; 73501; 80053; 81001; 82306; 82550; 85025; 85610; 85730; 87086; 93005; 96374; 99285

== ENCOUNTER 2022-11-03 00:43 | Emergency (ER) | payer MEDICARE, BC ==
[2022-11-03 00:58] VITALS: BP 161/84; PULSE 90; RESP 22; TEMP 98
--- NOTE | 2022-11-03 01:10 | ED ---
Fall HPI - General Chief Complaint: Fall Stated Complaint: Fall Time Seen by Provider: 11/03/22 00:57 Source: patient, EMS, RN notes reviewed, old records reviewed Mode of arrival: EMS Limitations: altered mental status (Intoxication) - History of Present Illness Initial Comments: This is an 82-year-old female to the emergency department for evaluation. Patient presents for evaluation of right ankle pain after a fall. Family and witnesses did think there was some deformity to the ankle, ankle splinted and patient is brought in by EMS. Patient denies any other complaints aside from right ankle and does not have significant pain in the ankle currently and she can move it without difficulty despite being splinted. Patient does admit to drinking today and that is her 89th birthday. 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: no Place Fall Occurred: home Loss of Consciousness: none Prolonged Down Time?: no Symptoms Prior to Fall: none Location - Extremities: Right: Ankle Severity: moderate Severity scale (1-10): 3 Quality: sharp Context: tripped/slipped Associated Symptoms: denies - Related Data Home Medications Medication Instructions Recorded Confirmed Gabapentin [Neurontin] 300 mg PO BID 02/02/19 11/03/22 Levothyroxine Sodium [Synthroid] 75 mcg PO DAILY 02/02/19 11/03/22 Lovastatin [Mevacor] 20 mg PO HS 02/02/19 11/03/22 lisinopriL [Zestril] 10 mg PO DAILY 02/02/19 11/03/22 DULoxetine HCL [Cymbalta] 30 mg PO DAILY 11/03/22 11/03/22 DULoxetine HCL [Cymbalta] 60 mg PO DAILY 11/03/22 11/03/22 Pantoprazole [Protonix] 40 mg PO [id number]-[id number] 11/03/22 11/03/22 traMADol HCL 100 mg PO TID PRN 11/03/22 11/03/22 traZODone HCL [Desyrel] 100 mg PO HS PRN 11/03/22 11/03/22 Previous Rx's Medication Instructions Recorded Aspirin 325 mg PO BID #28 tab 11/04/22 Sennosides/Docusate Sodium [Senna 1 each PO DAILY #20 capsule 11/04/22 Plus 8.6-50 mg Softgel] Gabapentin 300 mg PO BID #24 cap 11/06/22 traMADol HCL [traMADol HCL ER] 100 mg PO TID #36 cap 11/06/22 Allergies Allergy/AdvReac Type Severity Reaction Status Date / Time Sulfa (Sulfonamide AdvReac Nausea & Verified 11/03/22 14:43 Antibiotics) Vomiting Review of Systems ROS Statement: Those systems with pertinent positive or pertinent negative responses have been documented in the HPI. ROS Other: All systems not noted in ROS Statement are negative. Past Medical History Past Medical History: Hypertension History of Any Multi-Drug Resistant Organisms: None Reported Past Surgical History: No Surgical Hx Reported Past Psychological History: Anxiety, Depression Past Alcohol Use History: Daily Past Drug Use History: None Reported - Past Family History Mother Family Medical History: Hypertension General Exam Limitations: no limitations General appearance: alert, in no apparent distress Head exam: Present: atraumatic, normocephalic, normal inspection Eye exam: Present: normal appearance, PERRL, EOMI. Absent: scleral icterus, conjunctival injection, periorbital swelling ENT exam: Present: normal exam, mucous membranes moist Neck exam: Present: normal inspection. Absent: tenderness, meningismus, lymphadenopathy Respiratory exam: Present: normal lung sounds bilaterally. Absent: respiratory distress, wheezes, rales, rhonchi, stridor Cardiovascular Exam: Present: regular rate, normal rhythm, normal heart sounds. Absent: systolic murmur, diastolic murmur, rubs, gallop, clicks GI/Abdominal exam: Present: soft, normal bowel sounds. Absent: distended, tenderness, guarding, rebound, rigid Extremities exam: Present: normal inspection, full ROM, normal capillary refill, other (Significant deformity of right ankle). Absent: tenderness, pedal edema, joint swelling, calf tenderness Back exam: Present: normal inspection Neurological exam: Present: alert, oriented X3, CN II-XII intact Psychiatric exam: Present: normal affect, normal mood Skin exam: Present: warm, dry, intact, normal color. Absent: rash Course Vital Signs 11/03/22 00:48 Temperature 98.0 F Pulse Rate 90 Respiratory 22 Rate Blood Pressure 161/84 O2 Sat by Pulse 97 Oximetry - Reevaluation(s) Reevaluation #1: 11/03/22 01:10 Medical record is reviewed Reevaluation #2: Patient's pain is well-controlled Reevaluation #3: Patient informed results questions answered Reevaluation #4: 11/03/22 01:10 Was pt. sent in by a medical professional or institution (JERMAINE Harris, FIELD PROFESSIONAL, urgent care, hospital, or shelter...) When possible be specific @ -no Did you speak to anyone other than the patient for history (EMS, parent, family, police, friend...)? What history was obtained from this source @ -no Did you review nursing and triage notes (agree or disagree)? Why? @ -agree Are old charts reviewed (outside hosp., previous admission, EMS record, old EKG, old radiological studies, urgent care reports/EKG's, shelter records)? Report findings @ -yes Differential Diagnosis (chest pain, altered mental status, abdominal pain women, abdominal pain men, vaginal bleeding, weakness, fever, dyspnea, syncope, headache, dizziness, GI bleed, back pain, seizure, CVA, palpatations, mental health, musculoskeletal)? @ -prior EKG interpreted by me (3pts min.). @ -no X-rays interpreted by me (1pt min.). @ -yes CT interpreted by me (1pt min.). @ -no U/S interpreted by me (1pt. min.). @ -no What testing was considered but not performed or refused? (CT, X-rays, U/S, labs)? Why? @ -none What meds were considered but not given or refused? Why? @ -none Did you discuss the management of the patient with other professionals (professionals i.e. JERMAINE Harris, FIELD PROFESSIONAL, lab, RT, psych nurse, social service worker, recovery unit operator, teacher, guest services officer, case resolution specialist)? Give summary @ -no Was smoking cessation discussed for >3mins.? @ -no Was critical care preformed (if so, how long)? @ -no Were there social determinants of health that impacted care today? How? (Homelessness, low income, unemployed, alcoholism, drug addiction, transportation, low edu. Level, literacy, decrease access to med. care, nursing home, rehab)? @ -none Was there de-escalation of care discussed even if they declined (Discuss DNR or withdrawal of care, Hospice)? DNR status @ -no What co-morbidities impacted this encounter? (DM, HTN, Smoking, COPD, CAD, Cancer, CVA, ARF, Chemo, Hep., AIDS, mental health diagnosis, sleep apnea, morbid obesity)? @ -none Was patient admitted / discharged? Hospital course, mention meds given and route, prescriptions, significant lab abnormalities, going to OR and other pertinent info. @ - 82 female to the emergency department for significant fall patient was at her pre-birthday green party green party and tripped and fell, currently significantly intoxicated, patient is put in a splint pain is controlled patient will be discharged home Discharged Undiagnosed new problem with uncertain prognosis? @ -no Drug Therapy requiring intensive monitoring for toxicity (Heparin, Nitro, Insulin, Cardizem)? @ -no Were any procedures done? @ -Splinting Diagnosis/symptom? @ -Right Ankle Trimalleolar Fracture Acute, or Chronic, or Acute on Chronic? @ -Acute Uncomplicated (without systemic symptoms) or Complicated (systemic symptoms)? @ -Complicated Side effects of treatment? @ -no Exacerbation, Progression, or Severe Exacerbation? @ -exacerbation Poses a threat to life or bodily function? How? (Chest pain, [place], [place], pneumonia, PE, COPD, DKA, ARF, appy, cholecystitis, CVA, Diverticulitis, Homicidal, Suicidal, threat to staff... and all critical care pts) @ -no Procedures - Orthopedic Fracture Reduction Fracture #1 Consent Obtained: verbal consent Side: right Fracture Reduction Location: tibia, fibula Technique: direct manipulation, traction/counter-traction Post Reduction X-rays Demonstrate: acceptable reduction Post-Reduction Neuro Exam: intact Post-Reduction Vascular Exam: intact Splint Applied: Yes Patient Tolerated Procedure: well Medical Decision Making - Medical Decision Making 82 female to the emergency department for significant fall patient was at her pre-birthday green party green party and tripped and fell, currently significantly intoxicated, patient is put in a splint pain is controlled patient will be discharged home - Radiology Data Radiology results: report reviewed (X-rays positive for trimalleolar fracture), image reviewed Disposition Clinical Impression: Fall, Closed right ankle fracture, Trimalleolar fracture Disposition: HOME SELF-CARE Condition: Fair Instructions (If sedation given, give patient instructions): Ankle Fracture (ED) Is patient prescribed a controlled substance at d/c from ED?: No Referrals: Pete Dorado DO [Doctor of Osteopathic Medicine] - 1-2 days Time of Disposition: 03:00
[2022-11-03] MEDS ORDERED: HYDROmorphone 1 MG/ML 1 ML SYRINGE IVP STA (02:32)
--- NOTE | 2022-11-03 03:18 | XR ---
EXAM: XR Right Ankle Complete, 3 or More Views CLINICAL HISTORY: ITS.REASON XR Reason: pain TECHNIQUE: Frontal, lateral and oblique views of the right ankle. COMPARISON: None FINDINGS: Bones/joints: Displaced fractures of the distal right fibula at and above the level of the ankle mortise. Displaced fracture of the medial malleolus. Displaced fracture of the posterior malleolus. Lateral and posterior dislocation of the talus relative to the distal tibia. Soft tissues: Prominent soft tissue swelling. IMPRESSION: 1. Displaced fractures of the distal right fibula at and above the level of the ankle mortise. 2. Displaced fracture of the medial malleolus. 3. Displaced fracture of the posterior malleolus. 4. Lateral and posterior dislocation of the talus relative to the distal tibia.
--- NOTE | 2022-11-03 03:50 | XR ---
EXAM: XR Right Ankle Complete, 3 or More Views CLINICAL HISTORY: XR Reason: pain TECHNIQUE: Frontal, lateral and oblique views of the right ankle. COMPARISON: No relevant prior studies available. FINDINGS: Bones/joints: Oblique fracture of the distal fibula located 5 cm above the tibial plafond and with improved angulation post reduction and splinting. Transverse fracture through the medial malleolus with persistent lateral displacement of the proximal the 1 cm of the talus with respect to the tibia. No dislocation. Soft tissues: Unremarkable. Other findings: Findings detail is obscured by but material. IMPRESSION: 1. Oblique fracture of the distal fibula located 5 cm above the tibial plafond and with improved angulation post reduction and splinting. 2. Transverse fracture through the medial malleolus with persistent lateral displacement of the proximal the 1 cm of the talus with respect to the tibia.
== END 2022-11-03 03:29 | disposition home or self-care (01) ==
LOC: EC 00:43
DX: S82.851A Displaced trimalleolar fracture of right lower leg, initial encounter for closed fracture (principal); I10 Essential (primary) hypertension; Z86.59 Personal history of other mental and behavioral disorders; Z79.899 Other long term (current) drug therapy; Z88.2 Allergy status to sulfonamides; W01.0XXA Fall on same level from slipping, tripping and stumbling without subsequent striking against object, initial encounter; Y92.009 Unspecified place in unspecified non-institutional (private) residence as the place of occurrence of the external cause
CPT/HCPCS: 73600; 73610; 99284; 96374; 27825; J1170

== ENCOUNTER 2022-11-03 09:54 | Inpatient (IN) | payer MEDICARE, BC ==
[2022-11-03] MEDS ORDERED: MORPHINE SULFATE 4 MG/ML SYRINGE IVP STA (10:24)
--- NOTE | 2022-11-03 10:33 | ED ---
Lower Extremity Injury HPI <Anderson Barker - Last Filed: 11/03/22 13:04> - General Source: EMS Mode of arrival: EMS Limitations: no limitations <Phoenix,Laura - Last Filed: 11/03/22 13:15> - General Chief Complaint: Extremity Injury, Lower Stated Complaint: Right ankle injury Time Seen by Provider: 11/03/22 10:16 - History of Present Illness Initial Comments: Patient is a pleasant 82-year-old female presenting to the emergency room via EMS with her daughter with complaints of worsening right ankle pain. She was evaluated last night here in the emergency room in regards to a trip and fall in which a workup identified an oblique fracture of the distal fibula and transverse fracture through the medial malleolus; the fracture was reduced and splinted with improvement in angulation after reduction. She was offered admission for evaluation by orthopedist and pain control but opted to go home. She reports that she was doing well but then during the night pain returned and intensified significantly. She has been wearing the splint that was applied in the emergency room since her discharge and has been nonweightbearing. She denies any new falls or injuries elsewhere. Her only significant past medical history is hypertension however she is very hard of hearing. (Kym Moeller) - Related Data Home Medications Medication Instructions Recorded Confirmed Betamethasone Dipropionate 1 applic TOPICAL BID 02/02/19 02/02/19 [Diprolene AF 0.05% Cream] Escitalopram [Lexapro] 20 mg PO DAILY 02/02/19 02/02/19 Gabapentin [Neurontin] 300 mg PO TID@0800,1700,2100 02/02/19 02/02/19 LORazepam [Ativan] 0.5 mg PO DAILY PRN 02/02/19 02/02/19 Levothyroxine Sodium [Synthroid] 75 mcg PO DAILY 02/02/19 02/02/19 Levothyroxine Sodium [Synthroid] 75 mcg PO DAILY 02/02/19 02/02/19 Lovastatin [Mevacor] 20 mg PO HS 02/02/19 02/02/19 diphenhydrAMINE [Benadryl] 25 mg PO HS PRN 02/02/19 02/02/19 lisinopriL [Prinivil] 10 mg PO DAILY 02/02/19 02/02/19 lisinopriL [Zestril] 10 mg PO DAILY 02/02/19 02/02/19 traZODone HCL [Desyrel] 100 mg PO HS 02/02/19 02/02/19 Previous Rx's Medication Instructions Recorded Docusate [Colace] 100 mg PO BID #60 capsule 02/04/19 Enoxaparin [Lovenox] 40 mg SQ DAILY #28 syringe 02/04/19 Hydrocodone/Acetaminophen [[place] 1 tab PO Q4-6H PRN #40 tab 02/04/19 5-325] Calcium Carbonate [Tums] 500 mg PO TID PRN chew 02/05/19 Ergocalciferol [Vitamin D2] 50,000 unit PO Q72H #10 cap 02/05/19 Multivitamins, Thera [Multivitamin 1 each PO DAILY@1200 tab 02/05/19 (formulary)] Sennosides-Docusate Sodium 2 each PO HS tab 02/05/19 [Senokot-S] HYDROcodone/APAP 5-325MG [[place] 1 tab PO Q6HR PRN #12 tab 11/03/22 5-325] Allergies Allergy/AdvReac Type Severity Reaction Status Date / Time Sulfa (Sulfonamide AdvReac Nausea & Verified 11/03/22 10:01 Antibiotics) Vomiting Review of Systems ROS Other: All systems not noted in ROS Statement are negative. <Anderson Barker - Last Filed: 11/03/22 13:04> ROS Other: All systems not noted in ROS Statement are negative. <Kym Moeller - Last Filed: 11/03/22 13:15> ROS Statement: Those systems with pertinent positive or pertinent negative responses have been documented in the HPI. Past Medical History Past Medical History: Hypertension History of Any Multi-Drug Resistant Organisms: None Reported Past Surgical History: No Surgical Hx Reported Past Psychological History: Anxiety, Depression Smoking Status: Former smoker Past Alcohol Use History: Daily Past Drug Use History: None Reported - Past Family History Mother Family Medical History: Hypertension <Kym Moeller - Last Filed: 11/03/22 13:15> General Exam Limitations: no limitations General appearance: alert, in no apparent distress Head exam: Present: atraumatic, normocephalic, normal inspection Eye exam: Present: normal appearance, PERRL, EOMI. Absent: scleral icterus, conjunctival injection, periorbital swelling ENT exam: Present: normal exam, mucous membranes moist Neck exam: Present: normal inspection. Absent: tenderness Respiratory exam: Absent: respiratory distress, accessory muscle use Cardiovascular Exam: Present: regular rate GI/Abdominal exam: Present: soft. Absent: distended, tenderness, guarding, rebound, rigid Right Ankle exam: Absent: normal inspection (Posterior short leg splint intact), full ROM Neurovascular tendon exam: Present: no vascular compromise (Good capillary refill to right toe) Gait: unable to bear weight Back exam: Present: normal inspection Neurological exam: Present: alert, oriented X3, CN II-XII intact Psychiatric exam: Present: normal affect, normal mood Skin exam: Present: warm, dry, other (Ecchymosis bilateral upper extremities. Skin tear left forearm. Ecchymosis and blister to right lower extremity and medial ankle) <Kym Moeller - Last Filed: 11/03/22 13:15> Course Vital Signs 11/03/22 11/03/22 11/03/22 09:55 12:00 12:38 Temperature 98.4 F Pulse Rate 80 89 93 Respiratory 18 16 22 Rate Blood Pressure 192/83 152/81 186/90 O2 Sat by Pulse 96 98 100 Oximetry 11/03/22 11/03/22 11/03/22 12:43 12:48 12:53 Temperature Pulse Rate 68 82 82 Respiratory 22 22 20 Rate Blood Pressure 157/86 162/85 136/87 O2 Sat by Pulse 100 100 100 Oximetry 11/03/22 13:03 Temperature Pulse Rate 95 Respiratory 20 Rate Blood Pressure 132/64 O2 Sat by Pulse 98 Oximetry Procedures - Procedural Sedation *Procedural Sedation Start Time: 12:38 *Procedural Sedation Stop Time: 13:05 *Indications: fracture/dislocation reduction *Previous Adverse Reaction to Anesthesia/Sedation?: No * Testing Complete?: No Reason Test Not Complete:: Age > 60 *ASA Class: II *Mallampati Airway Score: 2 Preparation: ekg monitor tech applied, pulse oximeter, capnometry used, supplemental O2 applied, suction/airway equipment at bedside, IV secured IV Propofol Dose (mgs): 100 Complications: none Patient Tolerated Procedure: well <Anderson Barker - Last Filed: 11/03/22 13:04> Medical Decision Making - Lab Data Result diagrams: 11/03/22 02:28 11/03/22 10:51 <Anderson Barker - Last Filed: 11/03/22 13:04> - Lab Data Result diagrams: 11/03/22 02:28 11/03/22 10:51 - Radiology Data Radiology results: report reviewed (11/02/21 ankle image.), image reviewed <Kym Moeller - Last Filed: 11/03/22 13:15> - Medical Decision Making Was pt. sent in by a medical professional or institution (, PA, REPAIR ELECTRIC MOTOR ASSEMBLER, urgent care, hospital, or assisted...) When possible be specific @ -No Did you speak to anyone other than the patient for history (EMS, parent, family, police, friend...)? What history was obtained from this source @ -No Did you review nursing and triage notes (agree or disagree)? Why? @ -I reviewed and agree with nursing and triage notes Were old charts reviewed (outside hosp., previous admission, EMS record, old EKG, old radiological studies, urgent care reports/EKG's, assisted records)? Report findings @ -Yes, I reviewed x-rays of the right ankle completed on 727 both pre-and post reduction. Differential Diagnosis (chest pain, altered mental status, abdominal pain women, abdominal pain men, vaginal bleeding, weakness, fever, dyspnea, syncope, headache, dizziness, GI bleed, back pain, seizure, CVA, palpatations, mental health, musculoskeletal)? @ -Differential Musculoskeletal Muscular strain, contusion, ligament sprain, fracture, arthritis, septic arthritis, bursitis, cellulitis, muscle spasm, nerve compression, DVT, arterial occlusion, herpes zoster, electrolyte abnormality, tumor.... This is not meant to be in all inclusive list EKG interpreted by me (3pts min.). @ -None done X-rays interpreted by me (1pt min.). @ - X-ray right ankle continued displacement of tibial fracture and medial malleolus fracture. CT interpreted by me (1pt min.). @ -None done U/S interpreted by me (1pt. min.). @ -None done What testing was considered but not performed or refused? (CT, X-rays, U/S, la bs)? Why? @ -None What meds were considered but not given or refused? Why? @ -None Did you discuss the management of the patient with other professionals (professionals i.e. , PA, REPAIR ELECTRIC MOTOR ASSEMBLER, lab, RT, psych nurse, social work specialist, cdl instructor, teacher, physics technical officer, foster care case manager)? Give summary @ -Yes, spoke with call Ab Avitia and Dr. Dorado regarding patient and presentation see below regarding details of discussion and treatment. Was smoking cessation discussed for >3mins.? @ -No Was critical care preformed (if so, how long)? @ -No Were there social determinants of health that impacted care today? How? (Homele ssness, low income, unemployed, alcoholism, drug addiction, transportation, low edu. Level, literacy, decrease access to med. care, senior living, rehab)? @ -No Was there de-escalation of care discussed even if they declined (Discuss DNR or withdrawal of care, Hospice)? DNR status @ -No What co-morbidities impacted this encounter? (DM, HTN, Smoking, COPD, CAD, Cancer, CVA, ARF, Chemo, Hep., AIDS, mental health diagnosis, sleep apnea, morbid obesity)? @ -Known recent fall with fracture to the right ankle Was patient admitted / discharged? Hospital course, mention meds given and route, prescriptions, significant lab abnormalities, going to OR and other pertinent info. @ -82-year-old female presenting to the emergency room with uncontrollable pain status post fall yesterday with oblique fracture of the distal fibula and transverse fracture through the medial malleolus with displacement but improved alignment after reduction. Splint intact without any weightbearing since reduction. No indication for repeat diagnostic imaging. Will give morphine for pain. Will pull basic laboratory studies preemptively for possible surgical intervention of CBC, CMP and coags. No indication for any other medication administration or testing at this time. Will page orthopedic provider on-call for evaluation and admission. Spoke with jake Avitia and Dr. Dorado regarding patient presentation. Case Dr. Ghosh requesting patient be reduced by himself in the emergency room under conscious sedation rather than admitted to his services. Joint reduced with constipation and splint applied, Dr. Betancourt at bedside for conscious sedation, splinting and reduction completed by Dr. Watkins. Post reduction x-rays demonstrate continued malalignment. Dr. Nunez reports needing to take patient to the OR later today for open reduction and fixation. Patient to be admitted to his services for further treatment and management of closed fracture of the distal fibula and medial malleolus. Will admit patient in stable condition to observation unit under Dr. Dorado for further management duration treatment of closed fracture of the distal fibula and medial malleolus. Undiagnosed new problem with uncertain prognosis? @ -No Drug Therapy requiring intensive monitoring for toxicity (Heparin, Nitro, Insulin, Cardizem)? @ -No Were any procedures done? @ -Yes right ankle fracture reduction by Dr. Dorado and conscious sedation completed by Dr. Barker C conscious sedation note from Dr. Betancourt in consult by Dr. Ghosh regarding details of both of these procedures. Diagnosis/symptom? @ -Closed fracture of the distal fibula and medial malleolus Acute, or Chronic, or Acute on Chronic? @ -Acute Uncomplicated (without systemic symptoms) or Complicated (systemic symptoms)? @ -Complicated Side effects of treatment? @ -No Exacerbation, Progression, or Severe Exacerbation? @ -No Poses a threat to life or bodily function? How? (Chest pain, USA, ID, pneumonia, PE, COPD, DKA, ARF, appy, cholecystitis, CVA, Diverticulitis, Homicidal, Suicidal, threat to staff... and all critical care pts) @ -Yes, at risk for lack of healing and impaired mobility Case discussed with Dr. Barker. (Kym Moeller) - Lab Data Lab Results 11/03/22 11/03/22 11/03/22 Range/Units 02:28 10:51 10:51 WBC 8.0 (3.8-10.6) k/uL RBC 3.45 L (3.80-5.40) m/uL Hgb 11.8 (11.4-16.0) gm/dL Hct 33.8 L (34.0-46.0) % MCV 97.9 (80.0-100.0) fL MCH 34.2 (25.0-35.0) pg MCHC 35.0 (31.0-37.0) g/dL RDW 12.9 (11.5-15.5) % Plt Count 174 (150-450) k/uL MPV 8.4 Neutrophils % 58 % Lymphocytes % 23 % Monocytes % 10 % Eosinophils % 6 % Basophils % 0 % Neutrophils # 4.7 (1.3-7.7) k/uL Lymphocytes # 1.8 (1.0-4.8) k/uL Monocytes # 0.8 (0-1.0) k/uL Eosinophils # 0.5 (0-0.7) k/uL Basophils # 0.0 (0-0.2) k/uL PT 10.4 (9.0-12.0) sec INR 1.0 (<1.2) Sodium 139 (137-145) mmol/L Potassium 4.3 (3.5-5.1) mmol/L Chloride 109 H (98-107) mmol/L Carbon Dioxide 23 (22-30) mmol/L Anion Gap 7 mmol/L BUN 10 (7-17) mg/dL Creatinine 0.51 L (0.52-1.04) mg/dL Est GFR (CKD-EPI)AfAm >90 (>60 ml/min/1.73 sqM) Est GFR (CKD-EPI)NonAf >90 (>60 ml/min/1.73 sqM) Glucose 87 (74-99) mg/dL Calcium 8.4 (8.4-10.2) mg/dL Total Bilirubin 0.4 (0.2-1.3) mg/dL AST 40 H (14-36) U/L ALT 29 (4-34) U/L Alkaline Phosphatase 139 H (38-126) U/L Total Protein 6.4 (6.3-8.2) g/dL Albumin 3.6 (3.5-5.0) g/dL Disposition <Anderson Barker - Last Filed: 11/03/22 13:04> Is patient prescribed a controlled substance at d/c from ED?: No Time of Disposition: 13:15 <Kym Moeller - Last Filed: 11/03/22 13:15> Clinical Impression: Closed fracture of distal fibula, Medial malleolar fracture Disposition: ADMITTED IP TO THIS HOSP Condition: Stable Referrals: Hemanth Pizarro MD [Primary Care Provider] - 1-2 days
[2022-11-03 10:59] LABS: Basophils % (A) 0 %; Eosinophils # (A) 0.5 k/uL (0-0.7); Eosinophils % (A) 6 %; HCT 33.8 % (34.0-46.0); HGB 11.8 gm/dL (11.4-16.0); Lymphocytes # (A) 1.8 k/uL (1.0-4.8); Lymphocytes % (A) 23 %; MCH 34.2 pg (25.0-35.0); MCV 97.9 fL (80.0-100.0); Mean Platelet Volume 8.4; Monocytes # (A) 0.8 k/uL (0-1.0); Monocytes % (A) 10 %; Neutrophils # (A) 4.7 k/uL (1.3-7.7); Neutrophils % (A) 58 %; Platelet Count 174 k/uL (150-450); RBC 3.45 m/uL (3.80-5.40); RDW 12.9 % (11.5-15.5)
[2022-11-03 11:04] LABS: Prothrombin Time 10.4 sec (9.0-12.0)
[2022-11-03 11:20] LABS: ALT 29 U/L (4-34); AST 40 U/L (14-36); African American GFR (CKD) >90 (>60 ml/min/1.73 sqM); Albumin 3.6 g/dL (3.5-5.0); Alkaline Phosphatase 139 U/L (38-126); Anion Gap 7 mmol/L; Blood Urea Nitrogen 10 mg/dL (7-17); Calcium 8.4 mg/dL (8.4-10.2); Carbon Dioxide 23 mmol/L (22-30); Chloride 109 mmol/L (98-107); Glucose 87 mg/dL (74-99); Non-African American GFR(CKD) >90 (>60 ml/min/1.73 sqM); Potassium 4.3 mmol/L (3.5-5.1); Sodium 139 mmol/L (137-145); Total Bilirubin 0.4 mg/dL (0.2-1.3); Total Protein 6.4 g/dL (6.3-8.2)
[2022-11-03] MEDS ORDERED: PROPOFOL 10 MG/ML 20 ML VIAL IV ONE ×2 (12:21→14:18)
[2022-11-03] MEDS ORDERED: MORPHINE SULFATE 4 MG/ML SYRINGE IV PRN (13:05)
[2022-11-03] MEDS ORDERED: NALOXONE 0.4 MG/ML 1 ML VIAL IV PRN (13:05)
--- NOTE | 2022-11-03 13:22 | XR ---
EXAMINATION TYPE: XR ankle complete 3 views RT DATE OF EXAM: 11/03/2022 COMPARISON: Earlier today HISTORY: 82-year-old female postreduction exam TECHNIQUE: 3 views FINDINGS: Overlying plaster cast. Redemonstrated trimalleolar fractures. The lateral and posterior gao bluxation at the tibiotalar joint shows slight improvement. IMPRESSION: Trimalleolar fracture subluxation with slight improvement in lateral and posterior sublux ation.
[2022-11-03] MEDS: SODIUM CHLORIDE 0.9% 1,000 ML IV SCH (13:35)
[2022-11-03] MEDS ORDERED: SODIUM CHLORIDE 0.9% (PF) 10 ML VIAL ONE (14:18)
[2022-11-03] MEDS ORDERED: DEXAMETHASONE SOD PHOSPHATE 4 MG/ML 1 ML VIAL ONE (14:18)
[2022-11-03] MEDS ORDERED: ROPIVACAINE 5 MG/ML 30 ML VIAL ONE (14:18)
[2022-11-03] MEDS ORDERED: LIDOCAINE 2% INJ 20 MG/ML (2 ML VIAL) ONE (14:18)
[2022-11-03] MEDS ORDERED: fentaNYL (PF) 50 MCG/ML 2 ML AMP ONE (14:18)
[2022-11-03] MEDS ORDERED: MIDAZOLAM 2 MG/2 ML VIAL ONE (14:18)
[2022-11-03] MEDS ORDERED: LACTATED RINGERS 1,000 ML IV ONE ×2 (14:19→18:21)
[2022-11-03] MEDS ORDERED: ceFAZolin 1,000 MG VIAL ONE (14:21)
[2022-11-03] MEDS ORDERED: SODIUM CHLORIDE 0.9% 100 ML BAG ONE (14:21)
--- NOTE | 2022-11-03 14:22 | P.HPOR ---
History of Present Illness H&P Date: 11/03/22 This is an 82-year-old female who sustained a right ankle fracture dislocation on 11/03/2022 after a fall from standing at home at her 82th birthday green party. She presented to the emergency department and underwent closed reduction and immobilization. She was subsequently discharged home and returned to the emergency room with continued pain, was found to have a recurrent dislocation. Attempts at closed reduction in the emergency room were performed, again due to the unstable nature ankle was not able to be successfully reduced. She presents today for fixation of her right ankle fracture dislocation. Past Medical History Past Medical History: Hypertension History of Any Multi-Drug Resistant Organisms: None Reported Past Surgical History: No Surgical Hx Reported Past Psychological History: Anxiety, Depression Smoking Status: Former smoker Past Alcohol Use History: Daily Past Drug Use History: None Reported - Past Family History Mother Family Medical History: Hypertension Medications and Allergies Home Medications Medication Instructions Recorded Confirmed Type Betamethasone Dipropionate 1 applic TOPICAL BID 02/02/19 11/03/22 History [Diprolene AF 0.05% Cream] Escitalopram [Lexapro] 20 mg PO DAILY 02/02/19 11/03/22 History Gabapentin [Neurontin] 300 mg PO TID@0800,1700,2100 02/02/19 11/03/22 History Levothyroxine Sodium [Synthroid] 75 mcg PO DAILY 02/02/19 11/03/22 History Lovastatin [Mevacor] 20 mg PO HS 02/02/19 11/03/22 History lisinopriL [Zestril] 10 mg PO DAILY 02/02/19 11/03/22 History traZODone HCL [Desyrel] 100 mg PO HS 02/02/19 11/03/22 History Docusate [Colace] 100 mg PO BID #60 capsule 02/04/19 11/03/22 Rx Multivitamins, Thera [Multivitamin 1 each PO DAILY@1200 tab 02/05/19 11/03/22 Rx (formulary)] Sennosides-Docusate Sodium 2 each PO HS tab 02/05/19 11/03/22 Rx [Senokot-S] HYDROcodone/APAP 5-325MG [[place] 1 tab PO Q6HR PRN #12 tab 11/03/22 11/03/22 Rx 5-325] Allergies Allergy/AdvReac Type Severity Reaction Status Date / Time Sulfa (Sulfonamide AdvReac Nausea & Verified 11/03/22 14:02 Antibiotics) Vomiting Physical Examination Osteopathic Statement: *. No significant issues noted on an osteopathic structural exam other than those noted in the History and Physical/Consult. - Ankle & Foot right Ankle appearance: swelling Foot appearance: swelling Foot swelling: dorsal, medial, lateral Ankle pain worse with weight bearing: Yes Ankle pain relieved by non-weight bearing: Yes - Fracture right ankle Appearance: swelling Compartments: soft Distal extremity neurovascularly intact: Yes Distal joint involvement: Yes Results - Labs Labs: Abnormal Lab Results - Last 24 Hours (Table) 11/03/22 11/03/22 Range/Units 02:28 10:51 RBC 3.45 L (3.80-5.40) m/uL Hct 33.8 L (34.0-46.0) % Chloride 109 H (98-107) mmol/L Creatinine 0.51 L (0.52-1.04) mg/dL AST 40 H (14-36) U/L Alkaline Phosphatase 139 H (38-126) U/L H & H 11/03/22 Range/Units 02:28 Hgb 11.8 (11.4-16.0) gm/dL Hct 33.8 L (34.0-46.0) % Coagulation 11/03/22 Range/Units 10:51 INR 1.0 (<1.2) Result Diagrams: 11/03/22 02:28 11/03/22 10:51 Assessment and Plan Assessment: 1.) Right trimalleolar ankle fracture dislocation Plan: Due to the persistent instability of her injury we discussed she will require emergent surgical fixation of her right ankle fracture dislocation. Risks and benefits of surgery including bleeding, infection, damage to surrounding tissue, need for further surgery, potential irritating hardware, and risks of anesthesia including DVT, pulmonary embolism and even were discussed and patient wished to proceed with surgical intervention. Pete Dorado DO Orthopedic Surgeon Time with Patient: Greater than 30
[2022-11-03] MEDS ORDERED: SODIUM CHLORIDE 0.9% 50 ML with ceFAZolin 2,000 MG IV ONE ×2 (14:23)
[2022-11-03] MEDS ORDERED: HYDROmorphone 0.5 MG/0.5 ML SYRINGE IVP PRN ×2 (16:58)
[2022-11-03] MEDS ORDERED: SENNOSIDES-DOCUSATE SODIUM 1 EACH TAB PO PRN (16:58)
[2022-11-03] MEDS ORDERED: HYDROmorphone 0.5 MG/0.5 ML SYRINGE IVP ONE ×3 (17:03→17:21)
--- NOTE | 2022-11-03 17:14 | FL ---
Intraoperative/procedural fluoroscopic services were provided. Total fluoroscopy time is 24 seconds w ith a total of 3 submitted images to PACS. Please see the operative/procedural note for further detai ls. DAP: Not reported [email or web address]
[2022-11-03] MEDS ORDERED: MIDAZOLAM 2 MG/2 ML VIAL IVP ONE (17:38)
--- NOTE | 2022-11-03 17:50 | P.ANPRN ---
Procedure Note - Anesthesia - Nerve Block Performed Right Adductor Canal Single Time Out Performed: Yes Date of Procedure: 11/03/22 Procedure Start Time: 17:33 Procedure Stop Time: 17:38 Location of Patient: Phase I Indication: Acute Post-Operative Pain, Requested by Surgeon Specifically requested for management of pain by DrJane: Pete Dorado Sedation Type: Sedate with meaningful contact maintained Preparation: Sterile Prep Position: Supine Needle Types: Pajunk Needle Gauge: 21 Ultrasound used to visualize needle placement: Yes Ultrasound used to observe medication spread: Yes Injectate: 0.5% Ropivacaine (see comment for volume) (15 ml +15 ml NS) Blood Aspirated: No Pain Paresthesia on Injection Noted: No Resistance on Injection: Normal Image Stored and Saved: Yes Events: Uneventful and Well Tolerated
--- NOTE | 2022-11-03 17:51 | P.ANPRN ---
Procedure Note - Anesthesia - Nerve Block Performed Right Popliteal Single Time Out Performed: Yes Date of Procedure: 11/03/22 Procedure Start Time: 17:39 Procedure Stop Time: 17:45 Location of Patient: Phase I Indication: Acute Post-Operative Pain, Requested by Surgeon (salas) Specifically requested for management of pain by Dr.: Pete Dorado Sedation Type: Sedate with meaningful contact maintained Preparation: Sterile Prep Position: Left Lateral Needle Types: [place]ajunk Needle Gauge: 21 Ultrasound used to visualize needle placement: Yes Ultrasound used to observe medication spread: Yes Injectate: 0.5% Ropivacaine (see comment for volume) (15 ml + 15 ml ns + 4 MG DEXAMETHASONE) Blood Aspirated: No Pain Paresthesia on Injection Noted: No Resistance on Injection: Normal Image Stored and Saved: Yes Events: Uneventful and Well Tolerated
--- NOTE | 2022-11-03 18:17 | P.OP ---
Date of Procedure: 11/03/22 Preoperative Diagnosis: Right trimalleolar ankle fracture/dislocation Postoperative Diagnosis: Right trimalleolar ankle fracture/dislocation Procedure(s) Performed: Open reduction internal fixation of right trimalleolar ankle fracture/dislocation (48308) Implants: 1.) Arthrex 6 hole distal fibular locking plate 2.) Arthrex 4.0 Cannulated screws 50mm x2 Anesthesia: KIRILLA Surgeon: Pete Dorado Stave Grader #1: Cristian Avitia Estimated Blood Loss (ml): 50 Pathology: none sent Condition: stable Disposition: PACU Description of Procedure: This is a 82 year old female who sustained a right trimalleolar ankle fracture dislocation that presents today for emergent surgical intervention due to residual displacement and instability and dislocation of her ankle fracture despite attempt at closed reduction. Risks and benefits of surgery were discussed with the patient including bleeding, damage to surrounding tissue, infection, need for further surgery as well as risks of anesthesia including pulmonary embolism and even and the patient wished to proceed with surgical intervention. The patient was seen in the pre-operative area by myself. Consent and H&P were completed and updated. The correct extremity was marked in the pre-operative area by myself and all other questions were answered. Operative Narrative: The patient was brought to the operating room by the department of anesthesia. They were transferred safely to the operating table, all bony prominences were well padded. Bone foam was placed under the operative leg and a bump under the ipsilateral hip was placed. Pre-operative antibiotics were given prior to skin incision. The patient was then drifted off to sleep by the department of anesthesia. A nonsterile tourniquet was then applied to the operative extremity and the left lower extremity was then prepped and draped in normal sterile fashion. Pre-operative time out was performed indicating the correct patient, procedure and laterality. All in the room agreed. The operative extremity was the exsanguinated with an esmarch bandage and the tourniquet was inflated to 250mmHg. Lateral incision centered over the lateral fibula was made with 15 blade scalpel. Blunt dissection down through subcutaneous tissues was performed with Bre scissors and bovie cautery was utilized for hemostasis. Periosteum was incised along the lateral boarder of the distal fibula to reveal the oblique fracture pattern of the distal fibula. Care was taken to bluntly dissect proximally to avoid disrupting any possible branches of the superficial peroneal nerve. There was anterior comminution at the robert-inferior portion of the fracture. Irrigation, hurst tip suction and curette was used to distract the fracture fragments and clear out the fracture hematoma and small darek pieces of comminution present anterior that were blocking reduction of the 2 main fragments. Focus was then on achieving interfragmentary compression with lag screw across the fracture site. Pointed reduction clamp was used to reduce the fracture fragments and length and rotation was restored. Using a drill sleeve guide, a 3.5 mm glide hole was drilled in the near cortex perpendicular to the fracture site followed by a 2.5mm far cortex hole and a 3.5mm lag screw was inserted across the fracture site with good compression. Pointed reduction clamp was removed and no fracture movement was appreciated. An Arthrex distal fibular locking plate was then pinned into place to work as a neutralization plate. Nonlocking screws were drilled proximally and unicortical drilling was performed distal to the fracture site in order to avoid the distal talofibular articulation. Adequate plate contour and reduction was appreciated on imaging after all screws were inserted. Attention was then drawn to the medial aspect of the ankle. Patients skin was able to wrinkle therefore decision was made to proceed with open fixation of her medial malleolus fracture. Curvlinear incision was made along the mid portion of the medial malleolus. Care was taken to identify and protect the saphenous neurovascular bundle. Dissection was taken down to the fracture site bluntly and there was extensive lateral cortical comminution of the medial malleolus. Periostieum was cleared from the fracture site and the ankle joint was copiously irrigated removing small ossific fragment from the joint. The patients bone quality was extremely poor and soft. A 2.5 mm drill bit was drilled unicortically in the distal tibia and a pointed reduction clamp was used to reduce the fracture. Despite extensive comminution a anatomic reduction of the medial clear space was able to achieved. Satisfied with the reduction, 2 K-wires were inserted in retrograde fashion across the fracture site. Correct placement and maintenance of the reduction was confirmed on x-ray. Opening drill was used to overdrill the near cortex of the medial malleolus. 2 size 50mm 4.0 cannulated lag screws were then inserted across the fracture site with good compression achieved across the fracture site and k-wires were then removed. After adequate fixation of the distal fibula fracture and medial malleolus fracture an external rotation stress test was performed and there was no ap preciable gapping of the medial clear space and no widening of the syndesmosis. Cotton test was performed and no gapping at the syndesmosis was appreciated. The posterior malleolus fracture was identified and determined to be small enough to treat closed. The wound was then copiously irrigated and subcutaneous closure was performed with 2-0 Vicryl followed by 3-0 Nylon suture on skin in a horizont al mattress fashion. Sterile dressing consisting of Adaptic, ABD, cast padding and AO plaster splint was applied. The patient was then woken by the department of anesthesia and transferred to PACU in stable condition. Cristian DEAN was present for the case and assisted in major portions of the case and assisted in fracture reduction, retraction and placement of hardware and protection of vital neurovascular structures. Pete Dorado D.O. Orthopedic Surgeon
[2022-11-03] MEDS ORDERED: traMADol 50 MG TAB PO PRN (19:42)
[2022-11-03 20:25] LABS: Basophils % (A) 0 %; Eosinophils # (A) 0.2 k/uL (0-0.7); Eosinophils % (A) 2 %; HCT 32.9 % (34.0-46.0); HGB 10.7 gm/dL (11.4-16.0); Lymphocytes % (A) 10 %; MCH 33.1 pg (25.0-35.0); MCHC 32.6 g/dL (31.0-37.0); MCV 101.4 fL (80.0-100.0); Macrocytosis Slight; Mean Platelet Volume 10.3; Monocytes # (A) 0.8 k/uL (0-1.0); Monocytes % (A) 8 %; Neutrophils # (A) 8.3 k/uL (1.3-7.7); Neutrophils % (A) 80 %; Platelet Count 173 k/uL (150-450); RBC 3.25 m/uL (3.80-5.40); RDW 13.2 % (11.5-15.5); WBC 10.4 k/uL (3.8-10.6)
[2022-11-03] MEDS ORDERED: GABAPENTIN 300 MG CAP PO SCH ×2 (21:00→22:00)
[2022-11-03] MEDS: GABAPENTIN 300 MG CAP PO SCH (22:17)
[2022-11-03] MEDS: traMADol 50 MG TAB PO SCH (22:17)
[2022-11-03] MEDS: ATORVASTATIN 10 MG TAB PO SCH (22:17)
[2022-11-04] MEDS: LEVOTHYROXINE 75 MCG TAB PO SCH (06:43)
[2022-11-04] MEDS: PANTOPRAZOLE 40 MG TABLET PO SCH (06:43)
[2022-11-04] MEDS: SODIUM CHLORIDE 0.9% 1,000 ML IV SCH ×2 (06:46→17:34)
[2022-11-04] MEDS: DULoxetine HCL 30 MG CAPSULE.DR PO SCH (08:29)
[2022-11-04] MEDS: lisinopriL 10 MG TAB PO SCH (08:29)
[2022-11-04] MEDS: traMADol 50 MG TAB PO SCH ×3 (08:29→20:44)
[2022-11-04] MEDS: SENNOSIDES 8.6 MG TAB PO SCH (08:30)
[2022-11-04] MEDS: ASPIRIN 325 MG TAB PO SCH (08:30)
[2022-11-04] MEDS: GABAPENTIN 300 MG CAP PO SCH ×2 (08:30→20:44)
[2022-11-04] MEDS: DULoxetine HCL 60 MG CAPSULE.DR PO SCH (08:30)
--- NOTE | 2022-11-04 10:00 | P.DS ---
Providers Date of admission: 11/03/22 12:00 Expected date of discharge: 11/04/22 Attending physician: Pete Dorado DO Consults: 11/03/22 17:02 Consult Physician Routine Consulting Provider: Hemanth Pizarro Reason/Comments: Medical Management s/p right ankle ORIF Do you want consulting provider notified?: Yes Primary care physician: Hemanth Pizarro Hospital Course: Date of admission: 11/03/2022 Date of discharge: 11/04/2022 Admission diagnosis: Right ankle trimalleolar fracture/dislocation Discharge diagnosis: Same Attending physician: Dr. Dorado Surgical procedures: Right ankle open reduction internal fixation right ankle trimalleolar fracture/dislocation Brief history: Patient is a 82-year-old female with a history of right ankle trimalleolar fracture/social patient status post fall. At this point patient has failed conservative treatment measures and has opted to proceed with a elective right ankle ORIF right ankle trimalleolar fracture/dislocation. Hospital course: Details of patient's surgery can be found in operative report. Patient tolerated the procedure well and was subsequently transported to orthopedic floor. Patient's orthopeidc and medical care was provided daily. Patient had daily laboratory tests performed for evaluation of overall blood counts. Patient had daily physical therapy to include strengthening range of motion as well as education with walker ambulation. Patient was treated with aspirin for their postoperative DVT prophylaxis during their inpatient stay. Patient was noted to have a relatively uneventful postoperative course. Patient reported satisfactory pain control with oral pain medications by postoperative day 1. Patient showed satisfactory progress with physical therapy. Patient moved steadily through the program and had no difficulty meeting the goals by postoperative day 1. Given patient's otherwise satisfactory course and having met physical therapy goals, plan is to discharge patient [home] on postoperative day 1. Discharge condition/disposition: Patient will be discharged [home] in stable condition. Discharge medications: Instructions are given on resumption of patient's normal daily medications per primary care recommendation, in addition patient will be prescribed tramadol; aspirin 325 mg daily 28 days; senna. Orthopedic Discharge Instructions: 1. Wound care and infection precautions, keep incision dry and covered while showering, no lotions, creams, moisturizers. No soaking, pools, hot tubs. Do not scrub over incision. 2. Tcb-[id number]-[id number] right lower extremity with walker /crutches until follow- up. 3. Ice and elevate when necessary. Do not exceed 20 minutes per hour with ice pack. 4. Pain meds per prescription. 5. Anticoagulants per prescription. 6. Pain medication has potential to cause constipation. Increase oral fluid and fiber intake. Contact primary care provider if you have not had a bowel movement within 48 hours after discharge. 7. No anti-inflammatory medication until discussed at first post operative visit, this including Motrin, Aleve, Mobic, Diclofenac. 8. Follow up in office at [address] Pete Doardo. 9. Follow up with your primary care doctor 7-10 days after discharge. 10. Contact [facility] with any questions, . Assessment: Right trimalleolar ankle fracture/dislocation Procedures: Right ankle open reduction internal fixation right trimalleolar fracture/dislocation Patient Condition at Discharge: Good Plan - Discharge Summary Discharge Rx Participant: No New Discharge Prescriptions: New traMADol HCL 100 mg PO TID #21 tab Aspirin 325 mg PO BID #28 tab Sennosides/Docusate Sodium [Senna Plus 8.6-50 mg Softgel] 1 each PO DAILY #20 capsule No Action Lovastatin [Mevacor] 20 mg PO HS lisinopriL [Zestril] 10 mg PO DAILY Gabapentin [Neurontin] 300 mg PO BID Levothyroxine Sodium [Synthroid] 75 mcg PO DAILY traZODone HCL [Desyrel] 100 mg PO HS PRN PRN Reason: Insomnia traMADol HCL 100 mg PO TID PRN PRN Reason: Pain DULoxetine HCL [Cymbalta] 30 mg PO DAILY Pantoprazole [Protonix] 40 mg PO AC-BRKFST DULoxetine HCL [Cymbalta] 60 mg PO DAILY Discharge Medication List Gabapentin [Neurontin] 300 mg PO BID 02/02/19 [History] Levothyroxine Sodium [Synthroid] 75 mcg PO DAILY 02/02/19 [History] Lovastatin [Mevacor] 20 mg PO HS 02/02/19 [History] lisinopriL [Zestril] 10 mg PO DAILY 02/02/19 [History] DULoxetine HCL [Cymbalta] 30 mg PO DAILY 11/03/22 [History] DULoxetine HCL [Cymbalta] 60 mg PO DAILY 11/03/22 [History] Pantoprazole [Protonix] 40 mg PO AC-BRKFST 11/03/22 [History] traMADol HCL 100 mg PO TID PRN 11/03/22 [History] traZODone HCL [Desyrel] 100 mg PO HS PRN 11/03/22 [History] Aspirin 325 mg PO BID #28 tab 11/04/22 [Rx] Sennosides/Docusate Sodium [Senna Plus 8.6-50 mg Softgel] 1 each PO DAILY #20 capsule 11/04/22 [Rx] traMADol HCL 100 mg PO TID #21 tab 11/04/22 [Rx] Follow up Appointment(s)/Referral(s): Hemanth Pizarro MD [Primary Care Provider] - 1-2 days Pete Dorado DO [Doctor of Osteopathic Medicine] - 2 Weeks Patient Instructions/Handouts: Ankle Fracture (DC) Activity/Diet/Wound Care/Special Instructions: Orthopedic Discharge Instructions: 1. Wound care and infection precautions, keep incision dry and covered while showering, no lotions, creams, moisturizers. No soaking, pools, hot tubs. Do not scrub over incision. 2. Mpz-[id number]-taqs right lower extremity with walker /crutches until follow- up. 3. Ice and elevate when necessary. Do not exceed 20 minutes per hour with ice pack. 4. Pain meds per prescription. 5. Anticoagulants per prescription. 6. Pain medication has potential to cause constipation. Increase oral fluid and fiber intake. Contact primary care provider if you have not had a bowel movement within 48 hours after discharge. 7. No anti-inflammatory medication until discussed at first post operative visit, this including Motrin, Aleve, Mobic, Diclofenac. 8. Follow up in office at [address] Pete Dorado. 9. Follow up with your primary care doctor 7-10 days after discharge. 10. Contact [facility] with any questions, . Discharge Disposition: HOME SELF-CARE
--- NOTE | 2022-11-04 10:11 | P.PN ---
Subjective Progress Note Date: 11/04/22 Principal diagnosis: Right ankle trimalleolar fracture/dislocation Patient was seen at bedside this morning lying semirecumbent position with splint present to right lower extremity. Patient says her pain is well- controlled. Patient says she has urinated since surgery yesterday. Patient says she has not had bowel movement, however, patient says she has been passing gas. Patient is looking forward to going home today. Patient says she does have a walker at home. Patient is understanding that she is to be nonweightbearing on right lower extremity. Patient denies any other changes at this time. Patient denies chest pain, fever, shortness breath, nausea, vomiting, change in vision, loss of bowel/bladder control. Objective - Vital Signs Vital signs: Vital Signs Temp 98.3 F 11/04/22 07:27 Pulse 81 11/04/22 07:27 Resp 16 11/04/22 07:27 BP 156/79 11/04/22 07:27 Pulse Ox 98 11/04/22 07:27 FiO2 Intake & Output 11/03/22 11/04/22 11/04/22 18:59 06:59 18:59 Intake Total 950 Output Total 50 Balance 900 Weight 79.379 kg 79.379 kg Intake: IV 950 Output: Estimated Blood Loss 50 Other: # Voids 2 # Bowel Movements 1 - Exam Right ankle: Haider bandage and bulky splint/dressing are present to the right lower extremity. Patient is able to wiggle toes in the right lower extremity. Cap refill is under 3 seconds in the digits of the right foot. Patient is able to fully flex and extend her right knee. Patient does have good flexion extension of right hip. Calf is soft, no tenderness with palpation. EHL, FHL are intact. Sensory exam to light touch throughout the extremity is intact, dorsal pedis pulses 2+. - Labs CBC & Chem 7: 11/03/22 19:39 11/03/22 10:51 Labs: Abnormal Lab Results - Last 24 Hours (Table) 11/03/22 11/03/22 11/03/22 Range/Units 02:28 10:51 19:39 RBC 3.45 L 3.25 L (3.80-5.40) m/uL Hgb 10.7 L (11.4-16.0) gm/dL Hct 33.8 L 32.9 L (34.0-46.0) % MCV 101.4 H (80.0-100.0) fL Neutrophils # 8.3 H (1.3-7.7) k/uL Chloride 109 H (98-107) mmol/L Creatinine 0.51 L (0.52-1.04) mg/dL AST 40 H (14-36) U/L Alkaline Phosphatase 139 H (38-126) U/L Assessment and Plan Assessment: 1. Right ankle trimalleolar fracture/dislocation - Postoperative day 1 status post right ankle ORIF trimalar fracture Plan: 1. Right ankle trimalleolar fracture/dislocation - right ankle ORIF performed yesterday in the operating room. Patient stable at bedside this morning. Patient to remain nonweightbearing over next several weeks. Use walker/crutches at home. Maintain dressing clean, dry, intact. Pain medication as needed. Discharge home today 2. Appreciate medical management 3. Pain management - tramadol; gabapentin 4. GI prophylaxis - senna 5. DVT prophylaxis - aspirin 325 mg daily 6. PT/OT - nonweightbearing right lower extremity; use crutches/walker 7. Encourage incentive spirometer use 8. Discharge planning - discharge home today Time with Patient: Less than 30
--- NOTE | 2022-11-04 13:24 | CONS ---
CONSULTATION REASON FOR CONSULTATION: hypertension. HISTORY OF PRESENT ILLNESS: This 82-year-old woman with the past medical history of hypertension, hyperlipidemia, underwent ORIF of the right trimalleolar ankle fracture. There is no history of fever, rigors, or chills at this time. The patient has some difficulty walking. PAST MEDICAL HISTORY: Reviewed and include hypertension, hyperlipidemia. Rest of the history and chart is also reviewed. HOME MEDICATIONS: Reviewed and include Desyrel, doses and rest of medications reviewed. ALLERGIES: Sulfa. FAMILY HISTORY: Hypertension and hyperlipidemia. SOCIAL HISTORY: Previous history of smoking. Alcohol daily per chart. REVIEW OF SYSTEMS: 14-point review is negative except as mentioned earlier. PHYSICAL EXAMINATION: VITAL SIGNS: Pulse is 89, blood pressure 130/75, respirations 14. HEENT: Conjunctivae normal. NECK: No jugular venous distention. CARDIOVASCULAR: S1 and S2. ABDOMEN: Soft, nontender. LEGS: Status post ankle surgery. NERVOUS SYSTEM: No focal deficits. SKIN: No ulcers or rashes. JOINTS: No active deforming arthropathy. LABORATORY DATA: Reviewed. ASSESSMENT: 1. Status post right trimalleolar ankle fracture, ORIF. 2. Hypertension. 3. Hyperlipidemia. 4. Multiple medical issues. RECOMMENDATIONS: This 82-year-old woman presented with multiple complex medical issues. Recommend to continue current medications, continue symptomatic treatment. The patient appears to be medically stable at this time, but however recommend to avoid alcohol and closely monitor. Closely follow with primary physician. Home medications will be resumed once they are confirmed. We will follow the patient closely with you. MMODL / IJN: [id number] / NAYAN
[2022-11-04] MEDS: ATORVASTATIN 10 MG TAB PO SCH (20:44)
[2022-11-05] MEDS: traZODone HCL 50 MG TAB PO PRN ×2 (01:00→21:23)
[2022-11-05] MEDS: SODIUM CHLORIDE 0.9% 1,000 ML IV SCH ×2 (05:55→20:14)
[2022-11-05] MEDS: LEVOTHYROXINE 75 MCG TAB PO SCH (05:56)
[2022-11-05] MEDS: PANTOPRAZOLE 40 MG TABLET PO SCH (05:56)
--- NOTE | 2022-11-05 08:17 | P.PN ---
Subjective Progress Note Date: 11/05/22 Principal diagnosis: Right ankle trimalleolar fracture/dislocation Patient was seen at bedside this morning lying semirecumbent position with splint present to right lower extremity. Patient says her pain is well- controlled. Patient says she has urinated since surgery. Patient says she has not had bowel movement, however, patient says she has been passing gas. Patient says she is having some like spasms about her right knee. Patient says they are tolerable well. Patient says her and her family discuss yesterday at bedside that they would like for her to try to go to rehab upon discharge from hospital. Patient says she does have a walker at home. Patient is understanding that she is to be nonweightbearing on right lower extremity. Patient denies any other changes at this time. Patient denies chest pain, fever, shortness breath, nausea, vomiting, change in vision, loss of bowel/bladder control. Objective - Vital Signs Vital signs: Vital Signs Temp 97.6 F 11/05/22 01:40 Pulse 61 11/05/22 01:40 Resp 13 11/05/22 01:40 BP 129/71 11/05/22 01:40 Pulse Ox 97 11/05/22 01:40 FiO2 Intake & Output 11/04/22 11/05/22 11/05/22 18:59 06:59 18:59 Intake Total 354 Balance 354 Intake: Oral 354 Other: Voiding Method Toilet # Voids 2 1 # Bowel Movements 0 - Exam Right ankle: Haider bandage and bulky splint/dressing are present to the right lower extremity. Patient is able to wiggle toes in the right lower extremity. Cap refill is under 3 seconds in the digits of the right foot. Patient is able to fully flex and extend her right knee. Patient does have good flexion extension of right hip. Calf is soft, no tenderness with palpation. EHL, FHL are intact. Sensory exam to light touch throughout the extremity is intact, dorsal pedis pulses 2+. - Labs CBC & Chem 7: 11/03/22 19:39 11/03/22 10:51 Assessment and Plan Assessment: 1. Right ankle trimalleolar fracture/dislocation - Postoperative day 2 status post right ankle ORIF trimalar fracture Plan: 1. Right ankle trimalleolar fracture/dislocation - right ankle ORIF performed yesterday in the operating room. Patient stable at bedside this morning. Patient to remain nonweightbearing over next several weeks. Use walker/crutches. Maintain dressing clean, dry, intact. Pain medication as ne eded. family and patient have decided they would like for patient to try to go to rehab on discharge. We will move forward/plan for discharge to [facility]. case management consulted for [facility] placement. We will continue to follow patient during her stay in hospital. Plan for discharge to rehab tomorrow. 2. Appreciate medical management 3. Pain management - tramadol; gabapentin 4. GI prophylaxis - senna 5. DVT prophylaxis - aspirin 325 mg daily 6. PT/OT - nonweightbearing right lower extremity; use crutches/walker 7. Encourage incentive spirometer use 8. Discharge planning - Plan for discharge to rehab tomorrow. Time with Patient: Less than 30
[2022-11-05] MEDS: DULoxetine HCL 30 MG CAPSULE.DR PO SCH (09:39)
[2022-11-05] MEDS: ASPIRIN 325 MG TAB PO SCH (09:39)
[2022-11-05] MEDS: DULoxetine HCL 60 MG CAPSULE.DR PO SCH (09:39)
[2022-11-05] MEDS: SENNOSIDES 8.6 MG TAB PO SCH (09:39)
[2022-11-05] MEDS: traMADol 50 MG TAB PO SCH ×3 (09:39→20:12)
[2022-11-05] MEDS: lisinopriL 10 MG TAB PO SCH (09:39)
[2022-11-05] MEDS: GABAPENTIN 300 MG CAP PO SCH ×2 (09:40→20:12)
[2022-11-05] MEDS: ATORVASTATIN 10 MG TAB PO SCH (20:12)
--- NOTE | 2022-11-06 03:00 | PN ---
PROGRESS NOTE DATE OF SERVICE: 11/05/2022 CHIEF COMPLAINT: Trimalleolar fracture of the right leg. HISTORY OF PRESENT ILLNESS: This lady is doing fairly well. She is not having any great deal of pain. She has had no chest pain, shortness of breath, fever, chills, etc. PHYSICAL EXAMINATION: CHEST: Clear. CARDIAC: Normal. ABDOMEN: Soft and nontender. EXTREMITIES: Normal except for the right lower extremity, which is in cast. IMPRESSION: Trimalleolar fracture of the right ankle. PLAN: Continue to follow with Orthopedics until she can be discharged. MMODL / IJN: [id number] /
[2022-11-06 04:34] VITALS: RESP 16
[2022-11-06] MEDS: SODIUM CHLORIDE 0.9% 1,000 ML IV SCH (04:43)
[2022-11-06] MEDS: LEVOTHYROXINE 75 MCG TAB PO SCH (04:44)
[2022-11-06] MEDS: PANTOPRAZOLE 40 MG TABLET PO SCH (04:44)
--- NOTE | 2022-11-06 07:43 | HP ---
HISTORY AND PHYSICAL CHIEF COMPLAINT: Fracture of the right ankle. HISTORY OF PRESENT ILLNESS: This is an another admission for this 82-year-old female. She fell and came to the emergency room, was found to have a right ankle fracture. She refused to be admitted and went home, but came back with severe pain and ankle instability. She has a trimalleolar fracture. REVIEW OF SYSTEMS: She has had no headaches, neurologic problems, chest pain, shortness of breath, palpitation, abdominal pain, melena, hematochezia, renal failure, diabetes, etc. Past medical history, family history and personal and social histories are otherwise unremarkable and found in her admitting summary. PHYSICAL EXAMINATION: VITAL SIGNS: Blood pressure is 142/90 with a pulse of 89, respirations of 34, and she is afebrile. GENERAL: She appeared to be well developed, well nourished, in no acute distress. SKIN: Skin color is normal. Skin is warm, dry. LYMPH NODES: Not enlarged. HEAD, EARS, EYES, NOSE, MOUTH AND THROAT: Normal. CHEST: Clear. CARDIAC: Normal. ABDOMEN: Soft, nontender. MUSCULOSKELETAL: Right extremities normal except for the right ankle which is splinted. NEUROLOGIC: She is intact. She is admitted to the hospital diagnosis, ASSESSMENT: Trimalleolar fracture of the right ankle. RECOMMENDATIONS: None. MMODL / IJN: [id number] /
[2022-11-06] MEDS: lisinopriL 10 MG TAB PO SCH (08:54)
[2022-11-06] MEDS: GABAPENTIN 300 MG CAP PO SCH (08:54)
[2022-11-06] MEDS: ASPIRIN 325 MG TAB PO SCH (08:54)
[2022-11-06] MEDS: SENNOSIDES 8.6 MG TAB PO SCH (08:55)
[2022-11-06] MEDS: traMADol 50 MG TAB PO SCH ×2 (08:55→17:30)
[2022-11-06] MEDS: DULoxetine HCL 30 MG CAPSULE.DR PO SCH (08:56)
[2022-11-06] MEDS: DULoxetine HCL 60 MG CAPSULE.DR PO SCH (08:56)
--- NOTE | 2022-11-06 11:32 | P.PN ---
Subjective Progress Note Date: 11/06/22 Principal diagnosis: Right ankle trimalleolar fracture/dislocation Patient was seen at bedside this morning sitting up in chair with splint present to right lower extremity. Patient says her pain is well-controlled. Patient says she has urinated since surgery. Patient says she has not had bowel movement, however, patient says she has been passing gas. Patient says she is having some spasms above her right knee. Patient says they are tolerable. Patient says her and her family discuss yesterday at bedside that they would like for her to try to go to rehab upon discharge from hospital. Patient did get up with physical therapy this morning. Patient says she did have somewhat of a difficult time getting to the chair bed. Patient says she does have a walker at home. Patient is understanding that she is to be nonweightbearing on right lower extremity. Patient denies any other changes at this time. Patient denies chest pain, fever, shortness breath, nausea, vomiting, change in vision, loss of bowel/bladder control. Objective - Vital Signs Vital signs: Vital Signs Temp 98.7 F 11/06/22 03:13 Pulse 87 11/06/22 03:13 Resp 16 11/06/22 03:13 BP 149/73 11/06/22 03:13 Pulse Ox 94 L 11/06/22 03:13 FiO2 Intake & Output 11/05/22 11/06/22 11/06/22 18:59 06:59 18:59 Intake Total 120 Balance 120 Intake: Oral 120 Other: Voiding Method Toilet # Voids 2 2 - Exam Right ankle: Haider bandage and bulky splint/dressing are present to the right lower extremity. Patient is able to wiggle toes in the right lower extremity. Cap refill is under 3 seconds in the digits of the right foot. Patient is able to fully flex and extend her right knee. Patient does have good flexion extension of right hip. Calf is soft, no tenderness with palpation. EHL, FHL are intact. Sensory exam to light touch throughout the extremity is intact, dorsal pedis pulses 2+. - Labs CBC & Chem 7: 11/03/22 19:39 11/03/22 10:51 Assessment and Plan Assessment: 1. Right ankle trimalleolar fracture/dislocation - Postoperative day 3 status post right ankle ORIF trimalar fracture Plan: 1. Right ankle trimalleolar fracture/dislocation - right ankle ORIF performed Sunday in the operating room. Patient stable at bedside this morning. Patient to remain nonweightbearing over next several weeks. Use walker/crutches. Maintain dressing clean, dry, intact. Pain medication as needed. family and patient have decided they would like for patient to try to go to rehab on discharge. We will move forward/plan for discharge to [facility]. case management consulted for [facility] placement. We will continue to follow patient during her stay in hospital. Plan for discharge to rehab today. 2. Appreciate medical management 3. Pain management - tramadol; gabapentin 4. GI prophylaxis - senna 5. DVT prophylaxis - aspirin 325 mg daily 6. PT/OT - nonweightbearing right lower extremity; use crutches/walker 7. Encourage incentive spirometer use 8. Discharge planning - Plan for discharge to rehab today Time with Patient: Less than 30
[2022-11-06 16:36] VITALS: BP 146/75; PULSE 80; TEMP 98.2
--- NOTE | 2022-11-06 23:48 | PN ---
PROGRESS NOTE CHIEF COMPLAINT: Fracture of the right ankle. HISTORY OF PRESENT ILLNESS: This lady is doing well and may be going to rehab today. PHYSICAL EXAMINATION: CHEST: Clear. CARDIAC: Normal. ABDOMEN: Soft, nontender. IMPRESSION: Trimalleolar fracture of the right ankle. PLAN: Rehab today or tomorrow. MMODL / IJN: [id number] /
== END 2022-11-06 17:35 | DRG 494 ==
LOC: EC 09:54 → 4SSUR 12:00 → 6NMEDSUR 15:25 → OBSVTOIN 11-06 09:07
PROVIDERS: ADMIT Orthopaedic Surgery Hand Surgery; ATTEND Orthopaedic Surgery Hand Surgery
PROC: 0QSJ04Z Reposition Right Fibula with Internal Fixation Device, Open Approach (ICD-10-PCS; principal; 2022-11-06)
PROC: 0QSG04Z Reposition Right Tibia with Internal Fixation Device, Open Approach (ICD-10-PCS; 2022-11-06)
PROC: 0QSG04Z Reposition Right Tibia with Internal Fixation Device, Open Approach (ICD-10-PCS; 2022-11-06)
PROC: 0SSF0ZZ Reposition Right Ankle Joint, Open Approach (ICD-10-PCS; 2022-11-06)
PROC: 0QSG0ZZ Reposition Right Tibia, Open Approach (ICD-10-PCS; 2022-11-06)
PROC: 0QSG0ZZ Reposition Right Tibia, Open Approach (ICD-10-PCS; 2022-11-06)
PROC: 3E0T3BZ Introduction of Anesthetic Agent into Peripheral Nerves and Plexi, Percutaneous Approach (ICD-10-PCS; 2022-11-06)
PROC: 0QSJXZZ Reposition Right Fibula, External Approach (ICD-10-PCS; 2022-11-06)
DX: S82.851A Displaced trimalleolar fracture of right lower leg, initial encounter for closed fracture (principal); M25.371 Other instability, right ankle; K59.00 Constipation, unspecified; I10 Essential (primary) hypertension; H91.90 Unspecified hearing loss, unspecified ear; F41.9 Anxiety disorder, unspecified; F32.A Depression, unspecified; E78.5 Hyperlipidemia, unspecified; W18.30XA Fall on same level, unspecified, initial encounter; Y92.009 Unspecified place in unspecified non-institutional (private) residence as the place of occurrence of the external cause; Z79.890 Hormone replacement therapy; Z79.899 Other long term (current) drug therapy; Z82.49 Family history of ischemic heart disease and other diseases of the circulatory system; Z88.2 Allergy status to sulfonamides
CPT/HCPCS: 36415; 64445; 64447; 80053; 85025; 85610; 96374; 96375; 99285

== ENCOUNTER 2023-01-30 09:29 | Emergency (ER) | payer MEDICARE, BC ==
[2023-01-30] MEDS ORDERED: ONDANSETRON ODT 4 MG TAB PO STA (09:49)
[2023-01-30] MEDS ORDERED: ACETAMINOPHEN TAB 325 MG TAB PO STA (09:50)
--- NOTE | 2023-01-30 09:54 | ED ---
Head Injury HPI - General Chief complaint: Head Injury Stated complaint: fall Time Seen by Provider: 01/30/23 09:36 Source: patient, EMS, RN notes reviewed Mode of arrival: ambulatory Limitations: no limitations - History of Present Illness Initial comments: Patient an 82-year-old female presenting to the ER with a [facility] with a chief complaint of a fall/head injury. Patient states she fell hitting her head on a table. Patient denies loss of consciousness, blood thinner use, or other injuries. Patient endorses a headache and nausea with some vomiting. She denies any neck, shoulder, back, hip pain. Tetanus vaccination is up-to-date. - Related Data Home Medications Medication Instructions Recorded Confirmed Gabapentin [Neurontin] 300 mg PO BID 02/02/19 11/03/22 Levothyroxine Sodium [Synthroid] 75 mcg PO DAILY 02/02/19 11/03/22 Lovastatin [Mevacor] 20 mg PO HS 02/02/19 11/03/22 lisinopriL [Zestril] 10 mg PO DAILY 02/02/19 11/03/22 DULoxetine HCL [Cymbalta] 30 mg PO DAILY 11/03/22 11/03/22 DULoxetine HCL [Cymbalta] 60 mg PO DAILY 11/03/22 11/03/22 Pantoprazole [Protonix] 40 mg PO [id number] 11/03/22 11/03/22 traMADol HCL 100 mg PO TID PRN 11/03/22 11/03/22 traZODone HCL [Desyrel] 100 mg PO HS PRN 11/03/22 11/03/22 Previous Rx's Medication Instructions Recorded Aspirin 325 mg PO BID #28 tab 11/04/22 Sennosides/Docusate Sodium [Senna 1 each PO DAILY #20 capsule 11/04/22 Plus 8.6-50 mg Softgel] Gabapentin 300 mg PO BID #24 cap 11/06/22 traMADol HCL [traMADol HCL ER] 100 mg PO TID #36 cap 11/06/22 Allergies/Adverse reactions: Allergies Allergy/AdvReac Type Severity Reaction Status Date / Time Sulfa (Sulfonamide AdvReac Nausea & Verified 11/03/22 14:43 Antibiotics) Vomiting Review of Systems ROS Statement: Those systems with pertinent positive or pertinent negative responses have been documented in the HPI. ROS Other: All systems not noted in ROS Statement are negative. 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 Absent: tenderness, meningismus, lymphadenopathy Respiratory exam: Present: normal lung sounds bilaterally. Absent: respiratory distress, wheezes, rales, rhonchi, stridor Cardiovascular Exam: Present: regular rate, normal rhythm, normal heart sounds. Absent: systolic murmur, diastolic murmur, rubs, gallop, clicks GI/Abdominal exam: Present: soft, normal bowel sounds. Absent: distended, tenderness, guarding, rebound, rigid Extremities exam: Present: normal inspection, full ROM, normal capillary refill. Absent: tenderness, pedal edema, joint swelling, calf tenderness Neurological exam: Present: alert Skin exam: Present: other (5 cm laceration noted on the left posterior scalp) Course Vital Signs 01/30/23 01/30/23 01/30/23 09:31 09:38 10:30 Temperature 98.7 F 98.7 F Pulse Rate 72 78 80 Respiratory 17 18 18 Rate Blood Pressure 205/121 205/102 188/104 O2 Sat by Pulse 94 L 95 96 Oximetry Procedures - Laceration Laceration #1 Consent Obtained: verbal consent Indication: laceration Site: scalp Size (cm): 5 Description: linear Depth: simple, single layer Sedation/Analgesia: none Pre-repair: wound explored, irrigated extensively, deep structures intact Number of Sutures: 3 (dermal seth) Technique: other (dermal seth) Patient Tolerated Procedure: well, no complications Medical Decision Making - Medical Decision Making Was pt. sent in by a medical professional or institution (, PA, [employer], urgent care, hospital, or penitentiary...) When possible be specific @ -No Did you speak to anyone other than the patient for history (EMS, parent, family, police, friend...)? What history was obtained from this source @ -EMS Did you review nursing and triage notes (agree or disagree)? Why? @ -I reviewed and agree with nursing and triage notes Were old charts reviewed (outside hosp., previous admission, EMS record, old EKG, old radiological studies, urgent care reports/EKG's, penitentiary records)? Report findings @ -No old charts were reviewed Differential Diagnosis (chest pain, altered mental status, abdominal pain women, abdominal pain men, vaginal bleeding, weakness, fever, dyspnea, syncope, headache, dizziness, GI bleed, back pain, seizure, CVA, palpatations, mental health, musculoskeletal)? @ -Scalp laceration, intracranial hemorrhage, scalp hematoma, EKG interpreted by me (3pts min.). @ -None X-rays interpreted by me (1pt min.). @ -None done CT interpreted by me (1pt min.). @ -No acute intracranial processes. Chronic atrophic changes noted. U/S interpreted by me (1pt. min.). @ -None done What testing was considered but not performed or refused? (CT, X-rays, U/S, labs)? Why? @ -None What meds were considered but not given or refused? Why? @ -None Did you discuss the management of the patient with other professionals (professionals i.e. , PA, [employer], lab, RT, psych nurse, secondary social studies teacher, bridal gown fitter, teacher, founder chairman and chief creative officer, bottle caser)? Give summary @ -No Was smoking cessation discussed for >3mins.? @ -No Was critical care preformed (if so, how long)? @ -No Were there social determinants of health that impacted care today? How? (Homelessness, low income, unemployed, alcoholism, drug addiction, transportation, low edu. Level, literacy, decrease access to med. care, shelter, rehab)? @ -No Was there de-escalation of care discussed even if they declined (Discuss DNR or withdrawal of care, Hospice)? DNR status @ -No What co-morbidities impacted this encounter? (DM, HTN, Smoking, COPD, CAD, Cancer, CVA, ARF, Chemo, Hep., AIDS, mental health diagnosis, sleep apnea, morbid obesity)? @ -Hypertension Was patient admitted / discharged? Hospital course, mention meds given and route, prescriptions, significant lab abnormalities, going to OR and other pertinent info. @ -Discharged. Patient received by mouth acetaminophen and Zofran. Computed tomography scan of brain and C-spine was negative for intracranial processes or fracture. Patient received by mouth lisinopril due to hypertensive state and was responsive. ] Undiagnosed new problem with uncertain prognosis? @ -[No] Drug Therapy requirngintensive monitoring for toxicity (Heparin, Nitro, Insulin, Cardizem)? @ -[No] Were any procedures done? @ -Yes Diagnosis/symptom? scalp laceration Acute, or Chroic, or cute on Chronic? @ -[acute ] Uncomplicated withoutsystemic symptoms) or Complicated (systemic symptoms)? @ -uncomplicated] Side effects o treatmnt? @ -[No] Exacerbation, Progrsson, or Severe Exacerbation? @ -[No] Poses a threat to lfeor bodily function? How? (Chest pain, USA, DC, pneumonia, PE, COPD, DKA, ARF, appy, cholecystitis, CVA, Diverticulitis, Homicidal, Suicidal, threat to staff... and all critical care pts) @ -[No] - Radiology Data Radiology results: report reviewed, image reviewed Disposition Clinical Impression: Scalp laceration Disposition: HOME SELF-CARE Condition: Stable Instructions (If sedation given, give patient instructions): Head Injury (ED) Additional Instructions: Patient to return in 7-10 days to have seth removed. Is patient prescribed a controlled substance at d/c from ED?: No Referrals: Hemanth Pizarro MD [Primary Care Provider] - 1-2 days Time of Disposition: 11:27
[2023-01-30 09:56] VITALS: RESP 18; TEMP 98.7
--- NOTE | 2023-01-30 10:19 | CT ---
EXAMINATION TYPE: CT brain tony grewal DATE OF EXAM: 01/30/2023 COMPARISON: None HISTORY: Fall, open wound to back of head CT DLP: 1366.[address] of the brain was performed. The ventricles, basal cisterns and sulci overlying the cerebral convexities demonstrate mild enlargem ent. Small focal remote insult posterior right ledesma radiata. There is no evidence for intracranial hemorrhage or sulcal effacement. There is decreased attenuatio n about the periventricular white matter and deep white matter of both cerebral hemispheres, compatib le with chronic small vessel ischemia. No mass effects are seen. If symptoms persist consider MRI. Osseous calvarium is intact. Scalp hematoma posterior parietal region. IMPRESSION: 1. Age related atrophic and chronic small vessel ischemic change without acute intracranial process seen at this time. CT Cervical Spine: Unenhanced CT of the cervical spine was performed with bone and soft tissue window settings submitted . Coronal and sagittal reconstruction is obtained. There is normal alignment and prevertebral soft tissues. No evidence for acute cervical fracture . Scattered degenerative disc disease and spondylosis. Biapical scarring. IMPRESSION: 1. No evidence for acute fracture or subluxation of the cervical spine.
[2023-01-30] MEDS ORDERED: lisinopriL 10 MG TAB PO STA (10:29)
[2023-01-30 11:58] VITALS: BP 92/67; PULSE 79
== END 2023-01-30 11:51 | disposition home or self-care (01) ==
LOC: EC 09:29
DX: S01.01XA Laceration without foreign body of scalp, initial encounter (principal); E78.5 Hyperlipidemia, unspecified; I10 Essential (primary) hypertension; F41.9 Anxiety disorder, unspecified; F32.A Depression, unspecified; Z88.2 Allergy status to sulfonamides; Z79.899 Other long term (current) drug therapy; W01.198A Fall on same level from slipping, tripping and stumbling with subsequent striking against other object, initial encounter
CPT/HCPCS: 12002; 70450; 72125; 99284